=== PATIENT | male | born 1960 | race Hispanic/Latino ===

== ENCOUNTER 2020-04-03 23:13 | Observation (INO) | payer MEDICARE ==
[2020-04-04 00:32] LABS: Basophils % (Auto) 0.7 % (0.0-1.8); Eosinophils # (Auto) 0.1 K/mm3 (0.0-0.4); Eosinophils % (Auto) 1.5 % (0.0-4.3); Hematocrit 36.5 % (35.5-45.6); Hemoglobin 12.7 gm/dl (11.8-15.2); Lymphocytes # (Auto) 0.8 K/mm3 (1.2-5.4); Lymphocytes % (Auto) 15.1 % (13.4-35.0); Mean Corpuscular HGB Conc 35 % (32-34); Mean Corpuscular Volume 94 fl (84-94); Monocytes # (Auto) 0.8 K/mm3 (0.0-0.8); Monocytes % (Auto) 15.7 % (0.0-7.3); Platelet Count 193 K/mm3 (140-440); Red Blood Count 3.88 M/mm3 (3.65-5.03); Red Cell Distribution Width 13.9 % (13.2-15.2)
[2020-04-04 00:34] LABS: BUN/Creatinine Ratio 21; Blood Urea Nitrogen 17 mg/dL (9-20); Calcium 8.9 mg/dL (8.4-10.2); Hemolysis Index 0
--- NOTE | 2020-04-04 02:22 | Emergency Department Report ---
ED General Adult HPI - General Chief complaint: Wound/Laceration Stated complaint: LEG DRAINAGE PUI?: No Time Seen by Provider: 04/04/20 02:18 Source: patient, family Mode of arrival: Stretcher Limitations: No Limitations - History of Present Illness Initial comments: Patient is a 59-year-old male that presents emergency room with complaints of lower extremity ulcers and discoloration and discharge. Patient states that he had venous stasis ulcer in his legs for 1 year and they have been changing colors over the last 6 months. Patient states today that the wound bed on his left lower extremity turned black and began to have a purulent discharge. Patient states that the new symptoms started this morning. Patient denies fever and chills. Patient states the area is warm to touch. Patient states he has not seen a academic guidance specialist for a long time. Patient states he is been watching his wounds himself. 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 fib. Patient states he stopped taking his anticoagulation therapy 1 year ago. Patient states he has a filter. Patient denies recent travel. Patient denies recent international travel. Patient denies exposure to the novel coronavirus. Patient denies sick contacts. Patient denies fever and chills. Patient denies cough. Patient denies diarrhea. Patient denies coming in contact with anybody with symptoms of the novel coronavirus. -: Sudden Severity scale (0 -10): 3 Consistency: constant Improves with: rest Worsens with: movement Associated Symptoms: denies other symptoms. denies: confusion, chest pain, cough, diaphoresis, fever/chills, headaches, loss of appetite, malaise, nausea/vomiting, rash, seizure, shortness of breath, syncope, weakness Treatments Prior to Arrival: none - Related Data Allergies Allergy/AdvReac Type Severity Reaction Status Date / Time No Known Allergies Allergy Unverified 04/03/20 23:47 ED Review of Systems ROS: Stated complaint: LEG DRAINAGE Other details as noted in HPI Constitutional: denies: chills, fever Eyes: denies: eye pain, eye discharge, vision change ENT: denies: ear pain, throat pain Respiratory: denies: cough, shortness of breath, wheezing Cardiovascular: denies: chest pain, palpitations Endocrine: no symptoms reported Gastrointestinal: denies: abdominal pain, nausea, diarrhea Genitourinary: denies: urgency, dysuria Musculoskeletal: denies: back pain, joint swelling, arthralgia Skin: as per HPI, lesions, change in color. denies: rash Neurological: denies: headache, weakness, paresthesias Psychiatric: denies: anxiety, depression Hematological/Lymphatic: denies: easy bleeding, easy bruising ED Past Medical Hx - Past Medical History Previous Medical History?: Yes Additional medical history: A-fib. PE. DVT - Surgical History Past Surgical History?: Yes Additional Surgical History: Filter Lower right abdomen - Family History Family history: no significant - Social History Smoking Status: Never Smoker Substance Use Type: None ED Physical Exam - General Limitations: No Limitations General appearance: alert, in no apparent distress - Head Head exam: Present: atraumatic, normocephalic - Eye Eye exam: Present: normal appearance - ENT ENT exam: Present: mucous membranes moist - Neck Neck exam: Present: normal inspection - Respiratory Respiratory exam: Present: normal lung sounds bilaterally. Absent: respiratory distress, wheezes, rales - Cardiovascular Cardiovascular Exam: Present: regular rate, normal rhythm. Absent: systolic murmur, diastolic murmur, rubs, gallop - GI/Abdominal GI/Abdominal exam: Present: soft, normal bowel sounds - Rectal Rectal exam: Present: deferred - Extremities Exam Extremities exam: Present: tenderness, pedal edema, calf tenderness - Back Exam Back exam: Present: normal inspection - Neurological Exam Neurological exam: Present: alert, oriented X3 - Psychiatric Psychiatric exam: Present: normal affect, normal mood - Skin Skin exam: Present: warm, normal color, other (Bilateral lower extremity ulcers. Left leg worse than right. Lower extremity edema noted. Purulent discharge from the left lower extremity. A black eschar is noted on the left lower extremity.). Absent: rash ED Course Vital Signs 04/03/20 04/04/20 23:38 03:14 Temperature 97.9 F Pulse Rate 96 H Respiratory 18 18 Rate Blood Pressure 130/82 O2 Sat by Pulse 96 Oximetry - Reevaluation(s) Reevaluation #1: Patient complaining severe pain. Patient was given Dilaudid. 04/04/20 03:03 Reevaluation #2: Patient complaining anxiety. Patient will be given 2 mg of Ativan. 04/04/20 03:34 Reevaluation #3: I discussed all results with patient. I discussed plan of care with patient. Patient agrees with plan of care and admission. Patient to be admitted to the hospitalist service. 04/04/20 04:24 - Consultations Consultation #1: Hospitalist consulted for admission. Hospitalist to admit patient. Bridge orders placed. 04/04/20 04:25 ED Medical Decision Making - Lab Data Result diagrams: 04/04/20 00:02 04/04/20 00:02 - Radiology Data Radiology results: report reviewed DUPLEX DOPPLER LOWER EXTREMITY VEINS, BILATERAL INDICATION / CLINICAL INFORMATION: dionne lower pain and swelling. TECHNIQUE: Duplex doppler imaging was performed through the veins of both lower extremities using venous compression and other maneuvers. COMPARISON: None available. FINDINGS: RIGHT COMMON FEMORAL VEIN: Negative. RIGHT FEMORAL VEIN: Negative. RIGHT POPLITEAL VEIN: Negative. RIGHT CALF VEINS: Negative. LEFT COMMON FEMORAL VEIN: Negative. LEFT FEMORAL VEIN: Negative. LEFT POPLITEAL VEIN: Negative. LEFT CALF VEINS: Negative. ADDITIONAL FINDINGS: None. IMPRESSION: 1. No sonographic evidence for DVT in either lower extremity. - Medical Decision Making Patient is a 59-year-old male who presents emergency room with complaints of worsening stasis ulcer. Patient is a recently purulent discharge and I been. Patient was to be on anticoagulants for PEs and DVTs however patient been off for a year and patient complains of lower extremity swelling and pain. Patient given Dilaudid for pain. Patient given a Ativan for anxiety. Patient had an ultrasound of the lower extremities to rule out DVT. Patient given antibiotics early in the ER stay. Patient admitted to the hospital service for further evaluation and treatment. - Differential Diagnosis DVT, infected stasis ulcer, cellulitis, Critical Care Time: Yes Critical care time in (mins) excluding proc time.: 35 Critical care attestation.: If time is entered above; I have spent that time in minutes in the direct care of this critically ill patient, excluding procedure time. Critical Care Time: 35 minutes ED Disposition Clinical Impression: Swelling of lower extremity Lower extremity pain Qualifiers: Laterality: bilateral Qualified Code(s): M79.604 - Pain in right leg; M79.605 - Pain in left leg Venous stasis ulcer Qualifiers: Venous stasis ulcer site: other part of lower leg Varicose vein presence: unspecified whether present Laterality: unspecified laterality Non-pressure ulcer stage: with fat layer exposed Qualified Code(s): I83.008 - Varicose veins of unspecified lower extremity with ulcer other part of lower leg; L97.802 - Non-pressure chronic ulcer of other part of unspecified lower leg with fat layer exposed Infected stasis ulcer Qualifiers: Laterality: right Qualified Code(s): I83.219 - Varicose veins of right lower extremity with both ulcer of unspecified site and inflammation; L97.919 - Non- pressure chronic ulcer of unspecified part of right lower leg with unspecified severity Disposition: -09 OP ADMIT IP TO THIS HOSP Is pt being admited?: Yes Does the pt Need Aspirin: No Condition: Critical Time of Disposition: 04:21
[2020-04-04] MEDS ORDERED: VANCOMYCIN/NS 1 GM/250 ML 1 GM/250 ML BAG IV ONE (02:24)
[2020-04-04] MEDS ORDERED: PIPERACIL/TAZOBACTA 4.5/NS 100 4.5 GM/100 ML VIAL IV ONE (02:24)
[2020-04-04] MEDS ORDERED: VANCOMYCIN 2,000 MG in SODIUM CHLORIDE 0.9% 500 ML 500 ML IV ONE (03:00)
[2020-04-04] MEDS ORDERED: HYDROmorphone 1 MG/1 ML INJ ONE (03:05)
[2020-04-04] MEDS ORDERED: HYDROmorphone 1 MG/1 ML INJ IV ONE ×2 (03:08→03:14)
[2020-04-04] MEDS ORDERED: LORazepam 2 MG/ML VIAL IV ONE (03:46)
--- NOTE | 2020-04-04 03:54 | Vascular Lab Report ---
DUPLEX DOPPLER LOWER EXTREMITY VEINS, BILATERAL INDICATION / CLINICAL INFORMATION: dionne lower pain and swelling. TECHNIQUE: Duplex doppler imaging was performed through the veins of both lower extremities using venous kell rahul and other maneuvers. COMPARISON: None available. FINDINGS: RIGHT COMMON FEMORAL VEIN: Negative. RIGHT FEMORAL VEIN: Negative. RIGHT POPLITEAL VEIN: Negative. RIGHT CALF VEINS: Negative. LEFT COMMON FEMORAL VEIN: Negative. LEFT FEMORAL VEIN: Negative. LEFT POPLITEAL VEIN: Negative. LEFT CALF VEINS: Negative. ADDITIONAL FINDINGS: None. IMPRESSION: 1. No sonographic evidence for DVT in either lower extremity. Signer Name: Ghazala Noyola MD Signed: 04/04/2020 3:49 AM Workstation Name: [id number]
--- NOTE | 2020-04-04 08:44 | History and Physical Report ---
History of Present Illness Date of examination: 04/04/20 Date of admission: 04/04/20 04:25 Chief complaint: foot drainage and ulcer History of present illness: Patient is a 59-year-old male with h/o atrial fib, PE/DVT s/p ivc filter not on AC for one year, bipolar disorder/schizophrenia presented to the emergency room with complaints of lower extremity ulcers and discoloration and discharge. Patient states that he had venous stasis ulcer in his legs for 1 year and they have been changing colors over the last 6 months. Patient states that the wound bed on his left lower extremity recently turned black and today began to have a purulent discharge started this morning. Patient denies fever and chills. Patient states the area is warm to touch. Patient states he has not seen a transfer specialist for a long time. In the Er his blood workup is all normal. he being being admitted for surgical evaluation for possible debridement. Review of System: Constitutional: no fever, no chills, no weight loss Ears, eyes, nose, mouth and throat: no nasal congestion, no nasal discharge, no sinus pressure, no vision change, no red eye. Neck: No neck pain or rigidity. Cardiovascular: No chest pain, no orthopnea, no palpitations, no leg swelling Respiratory: No shortness of breath, no cough, no congestion, no wheezing Gastrointestinal: no abdominal pain, no nausea, no vomiting Genitourinary : no dysuria, no hematuria Musculoskeletal: no joint swelling or muscle ache Integumentary: no rash, no pruritis. + Bilateral lower extremity skin discoloration with yellowish discharge from the leg with chronic ulcer. Neurological: no parathesias, no numbness, no tingling Endocrine: no cold or heat intolerance, no polyuria or polydipsia Hematologic/Lymphatic: no easy bruising, no easy bleeding, no gland swelling Allergic/Immunologic: no urticaria, no angioedema. Past History Past Medical History: atrial fib (paroxysmal not on AC), hypertension, pulmonary embolism (h/o), other (Bipolar disorder) Past Surgical History: Other (s/p IVC filter) Social history: Lives alone. denies: smoking, alcohol abuse, IV drug use Family history: CAD, diabetes, stroke Medications and Allergies Allergies Allergy/AdvReac Type Severity Reaction Status Date / Time No Known Allergies Allergy Unverified 04/03/20 23:47 Home Medications Medication Instructions Recorded Confirmed Last Taken Type No Known Home Medications [No 04/04/20 04/04/20 Unknown History Reported Home Medications] Exam - Physical Exam Narrative exam: GENERAL: well-developed and well-nourished white male lying on bed appeared to be in no discomfort. HEENT: Normocephalic. Atraumatic. No conjunctival congestion or icterus. Patient has moist mucous membranes. NECK: Supple. Trachea midline. CHEST/LUNGS: Clear to auscultated bilaterally, breathing nonlabored. No wheezes crackles or rhonchi. HEART/CARDIOVASCULAR: Regular in rate and rhythm. S1 and S2 positive. ABDOMEN: Abdomen is soft, nontender. Patient has normal bowel sounds. SKIN: Warm and dry. Bilateral lower extremity skin discoloration with chronic ulcer. NEURO: No focal motor deficit. Follows command. MUSCULOSKELETAL: No joint effusion or tenderness. EXTRIMITY: no cyanosis or clubbing. Moderate amount of yellow drainage on both LE, Wound is necrotic on left leg, Skin is sloughing. PSYCH: Cooperative with flight of thoughts. Patient is unable to focus on 1 topics. Does not have any suicidal or homicidal ideas or thoughts. - Constitutional Vitals: Temp Pulse Resp BP Pulse Ox 97.9 F 84 16 117/64 91 04/03/20 23:38 04/04/20 05:01 04/04/20 05:01 04/04/20 05:01 04/04/20 05:01 Results - Labs CBC & Chem 7: 04/04/20 00:02 04/05/20 03:38 Labs: Abnormal lab results 04/04/20 04/04/20 Range/Units 00:02 00:02 MCH 33 H (28-32) pg MCHC 35 H (32-34) % [place] % (Auto) 15.7 H (0.0-7.3) % Lymph # (Auto) 0.8 L (1.2-5.4) K/mm3 Glucose 154 H (75-100) mg/dL Assessment and Plan B/L LE infected ulcer - start abx, order wound cx, blood cx - consult wound care and Dr Harding for possible debridement Atrial fib (paroxysmal not on AC) - get 2d echo, follow clinically hypertension, monitor BP h/o PE and DVT - s/p IVC filter, not on AC - will order doppler study Bipolar disorder, will consult psych dvt px, lovenox
[2020-04-04] MEDS ORDERED: ALUM-MAG HYDROXIDE-SIMETHICONE 200-200-20MG/5ML ORAL LIQD 30 ML PO PRN (08:45)
[2020-04-04] MEDS ORDERED: ONDANSETRON 4 MG/2 ML INJ IV PRN (08:45)
[2020-04-04] MEDS ORDERED: ACETAMINOPHEN 325 MG TAB PO PRN (08:45)
[2020-04-04] MEDS ORDERED: cefTRIAXone/NS 1 GM/50 ML 1 GM/50 ML BAG IV SCH (10:00)
[2020-04-04] MEDS ORDERED: VANCOMYCIN/NS 1 GM/250 ML 1 GM/250 ML BAG IV SCH (10:00)
[2020-04-04] MEDS ORDERED: VANCOMYCIN PHARMACY TO DOSE IV SCH (10:00)
[2020-04-04] MEDS: FAMOTIDINE 10 MG TAB PO SCH ×2 (12:47→21:54)
[2020-04-04] MEDS: cefTRIAXone/NS 2 GM/100 ML 2 GM/100 ML BAG IV SCH (12:47)
[2020-04-04] MEDS: oxyCODONE /ACETAMINOPHEN 5-325MG TAB PO PRN (12:48)
[2020-04-04] MEDS: SODIUM HYPOCHLORITE, DAKIN'S 1/2 STRENGTH (0.25%) 473 ML TOPICAL SOLN TP SCH ×2 (17:39→21:55)
[2020-04-04] MEDS: VANCOMYCIN 1,750 MG in SODIUM CHLORIDE 0.9% 500 ML 500 ML IV SCH (17:40)
[2020-04-04] MEDS ORDERED: LIDOCAINE (4%) 40 MG/ML TOPICAL SOLN 50 ML BOTTLE TP ONE (17:47)
--- NOTE | 2020-04-04 17:51 | Consultation ---
History of Present Illness Consult date: 04/04/20 - History of present illness History of present illness: 59 yo male with long standing BLE venous stasis ulcerations. He does not smoke and is not a diabetic. Medications and Allergies Allergies Allergy/AdvReac Type Severity Reaction Status Date / Time No Known Allergies Allergy Unverified 04/03/20 23:47 Home Medications Medication Instructions Recorded Confirmed Last Taken Type No Known Home Medications [No 04/04/20 04/04/20 Unknown History Reported Home Medications] Active Meds: Active Medications Acetaminophen (Acetaminophen 325 Mg Tab) 650 mg PO Q4H PRN PRN Reason: Pain MILD(1-3)/Fever >100.5/HENRY Al Hydrox/Mg Hydrox/Simethicone (Alum-Mag Hydroxide-Simethicone [phone]/5ml Oral Liqd 30 Ml) 30 ml PO Q4H PRN PRN Reason: Indigestion Famotidine (Famotidine 10 Mg Tab) 10 mg PO BID ON LICENSE OF [facility] Last Admin: 04/04/20 12:47 Dose: 10 mg Documented by: Ceftriaxone Sodium (Rocephin/Ns 2 Gm/100 Ml) 2 gm in 100 mls @ 200 mls/hr IV Q24HR ON LICENSE OF [facility] Last Admin: 04/04/20 12:47 Dose: 200 mls/hr Documented by: Vancomycin HCl 1,750 mg/ (Sodium Chloride) 535 mls @ 333.333 mls/hr IV Q12H ON LICENSE OF [facility] Last Admin: 04/04/20 17:40 Dose: 333.333 mls/hr Documented by: Ondansetron HCl (Ondansetron 4 Mg/2 Ml Inj) 4 mg IV Q8H PRN PRN Reason: N/V unrelieved by Reglan Oxycodone/Acetaminophen (Oxycodone /Acetaminophen 5-325mg Tab) 1 tab PO Q6H PRN PRN Reason: Pain, Moderate (4-6) Last Admin: 04/04/20 12:48 Dose: 1 tab Documented by: Sodium Hypochlorite (Sodium Hypochlorite, Dakin's 1/2 Strength (0.25%) 473 Ml Topical Soln) 1 applic TP BID ON LICENSE OF [facility] Last Admin: 04/04/20 17:39 Dose: Not Given Documented by: Review of Systems All systems: negative (none) Exam Vital Signs Temp Pulse Resp BP Pulse Ox 97.9 F 96 H 18 130/82 96 04/03/20 23:38 04/03/20 23:38 04/03/20 23:38 04/03/20 23:38 04/03/20 23:38 - General physical appearance Positive: well developed, well nourished, no distress - Eyes Positive: PERRL, normal occular movement - ENT Positive: normal pinna, normal nares, normal mucosa, no hearing loss, no congestion - Neck Positive: no masses, no bruits, trachea midline, no venous distension - Respiratory Positive: normal expansion, normal respiratory effort, clear to auscultation - Cardiovascular Rhythm: regular Heart Sounds: Present: S1 & S2. Absent: rub, click - Extremities Extremities: no ischemia, pulses symmetrical, No edema - Breasts Breasts: normal, no mass, no skin changes - Abdomen Abdomen: Present: soft, bowel sounds normal. Absent: tender, distended Hernia: none - Genitourinary Male Genitourinary: normal Female Genitourinary: normal - Integumentary no growths, other (Please see the photographs and measurements of the Wound Care nurse.) - Neurologic Neurologic: alert and oriented to time, place and person, motor strength and se nsation are grossly intact - Musculoskeletal normal gait, normal posture - Psychiatric Psychiatric: appropriate mood/affect, intact judgment & insight Results - Labs 04/04/20 00:02 04/04/20 00:02 Abnormal lab results 04/04/20 04/04/20 Range/Units 00:02 00:02 MCH 33 H (28-32) pg MCHC 35 H (32-34) % [place] % (Auto) 15.7 H (0.0-7.3) % Lymph # (Auto) 0.8 L (1.2-5.4) K/mm3 Glucose 154 H (75-100) mg/dL Diabetes panel 04/04/20 Range/Units 00:02 Sodium 139 (137-145) mmol/L Potassium 4.2 (3.6-5.0) mmol/L Chloride 104.3 (98-107) mmol/L Carbon Dioxide 24 (22-30) mmol/L BUN 17 (9-20) mg/dL Creatinine 0.8 (0.8-1.3) mg/dL Glucose 154 H (75-100) mg/dL Calcium 8.9 (8.4-10.2) mg/dL Calcium panel 04/04/20 Range/Units 00:02 Calcium 8.9 (8.4-10.2) mg/dL Pituitary panel 04/04/20 Range/Units 00:02 Sodium 139 (137-145) mmol/L Potassium 4.2 (3.6-5.0) mmol/L Chloride 104.3 (98-107) mmol/L Carbon Dioxide 24 (22-30) mmol/L BUN 17 (9-20) mg/dL Creatinine 0.8 (0.8-1.3) mg/dL Glucose 154 H (75-100) mg/dL Calcium 8.9 (8.4-10.2) mg/dL Adrenal panel 04/04/20 Range/Units 00:02 Sodium 139 (137-145) mmol/L Potassium 4.2 (3.6-5.0) mmol/L Chloride 104.3 (98-107) mmol/L Carbon Dioxide 24 (22-30) mmol/L BUN 17 (9-20) mg/dL Creatinine 0.8 (0.8-1.3) mg/dL Glucose 154 H (75-100) mg/dL Calcium 8.9 (8.4-10.2) mg/dL Assessment and Plan - Patient Problems (1) Venous stasis ulcer Current Visit: Yes Status: Acute Qualifiers: Venous stasis ulcer site: other part of lower leg Varicose vein presence: unspecified whether present Laterality: unspecified laterality Non-pressure ulcer stage: with fat layer exposed Qualified Code(s): I83.008 - Varicose veins of unspecified lower extremity with ulcer other part of lower leg; L97.802 - Non-pressure chronic ulcer of other part of unspecified lower leg with fat layer exposed Plan to address problem: 1) Elevation of BLE at all times 2) Agree with Wound care nurse consultation 3) I will debride his BLE ulcerations at the bedside tomorrow.
[2020-04-05] MEDS: oxyCODONE /ACETAMINOPHEN 5-325MG TAB PO PRN ×2 (00:34→06:39)
[2020-04-05] MEDS ORDERED: MORPHINE 2 MG/1 ML INJ IV ONE (04:50)
[2020-04-05] MEDS: VANCOMYCIN 1,750 MG in SODIUM CHLORIDE 0.9% 500 ML 500 ML IV SCH (05:27)
[2020-04-05 06:08] LABS: Blood Urea Nitrogen 12 mg/dL (9-20); Calcium 8.9 mg/dL (8.4-10.2); Hemolysis Index 2
[2020-04-05 06:14] LABS: BUN/Creatinine Ratio 17
[2020-04-05] MEDS: SODIUM HYPOCHLORITE, DAKIN'S 1/2 STRENGTH (0.25%) 473 ML TOPICAL SOLN TP SCH (11:00)
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
--- NOTE | 2020-04-05 12:14 | Procedure Note ---
Date of procedure: 04/05/20 Pre-op diagnosis: Left medial leg ulcer Post-op diagnosis: same Procedure: Debridement of left medial leg ulcer Description of procedure: Post-debridement measurements: 11.6 X 7 X 0.6 cm Anesthesia: other (Topical lidocaine, 4%) Surgeon: JAIR MANJARREZ Estimated blood loss: minimal Pathology: none Specimen disposition: discarded Condition: stable Disposition: no change
[2020-04-05] MEDS: FAMOTIDINE 10 MG TAB PO SCH (13:17)
[2020-04-05] MEDS: cefTRIAXone/NS 2 GM/100 ML 2 GM/100 ML BAG IV SCH (13:18)
[2020-04-05 13:33] VITALS: BP 127/83
--- NOTE | 2020-04-05 14:30 | Discharge Summary ---
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 Patient states he has not seen a [facility] specialist for a long time. In the Er his blood workup is all normal. he was admitted for surgical evaluation for possible debridement, consulted Dr. Harding, started on empiric IV antibiotics, obtained wound culture. Patient had bedside debridement, wound care was consulted for wound care recommendation. Patient was recommended to follow-up with the wound care clinic. Patient was also evaluated by psychiatry and recommended outpatient follow-up. Patient was discharged home in stable condition with outpatient follow-up. Discharge diagnosis: B/L LE infected ulcer -Status post debridement at bedside by Dr. Harding -Continue antibiotics, follow-up wound care clinic Atrial fib (paroxysmal not on AC), -follow with cardiology outpatient -Discharge home with daily aspirin -Ordered 2D echo but patient did not want to wait for the result hypertension, monitored BP, stable h/o PE and DVT - s/p IVC filter, not on AC -Negative for DVT on Doppler study Bipolar disorder, consulted psych, outpatient follow-up dvt px, lovenox Disposition: [id number] HOME UNDER [facility] Time spent for discharge: 34 minutes Core Measure Documentation - Palliative Care Palliative Care/ Comfort Measures: Not Applicable - Core Measures Any of the following diagnoses?: none Exam - Physical Exam Narrative exam: GENERAL: well-developed and well-nourished white male lying on bed appeared to be in no discomfort. HEENT: Normocephalic. Atraumatic. No conjunctival congestion or icterus. Patient has moist mucous membranes. NECK: Supple. Trachea midline. CHEST/LUNGS: Clear to auscultated bilaterally, breathing nonlabored. No wheezes crackles or rhonchi. HEART/CARDIOVASCULAR: Regular in rate and rhythm. S1 and S2 positive. ABDOMEN: Abdomen is soft, nontender. Patient has normal bowel sounds. SKIN: Warm and dry. Bilateral lower extremity skin discoloration with chronic ulcer. NEURO: No focal motor deficit. Follows command. MUSCULOSKELETAL: No joint effusion or tenderness. EXTRIMITY: no cyanosis or clubbing. Bilateral lower extremity with wound dressing PSYCH: Cooperative with flight of thoughts. Patient is unable to focus on 1 topics. Does not have any suicidal or homicidal ideas or thoughts. - Constitutional Vitals: Temp Pulse Resp BP Pulse Ox 98.2 F 83 22 127/83 97 04/05/20 11:32 04/05/20 11:32 04/05/20 11:32 04/05/20 11:32 04/05/20 11:32 Plan Activity: advance as tolerated Weight Bearing Status: Weight Bear as Tolerated Diet: low fat, low salt Wound: per your surgeon's advice, per wound nurse instructions Additional Instructions: f/u 2d echo result Follow up with: PRIMARY CAREMD [Primary Care Provider] - 7 Days JAIR HARDING MD [Staff Physician] - 7 Days VIDAL KAISER MD [Staff Physician] - 7 Days Prescriptions: Mirtazapine [Remeron 15mg TAB] 15 mg PO QHS #14 tablet OLANzapine [ZyPREXA] 10 mg PO QHS #14 tablet Sulfamethoxazole/Trimethoprim [Bactrim DS TAB] 1 each PO BID #14 tablet Aspirin EC [Halfprin EC] 81 mg PO QDAY #30 tablet.
[2020-04-05] MEDS ORDERED: MELATONIN 5 MG TAB PO SCH (22:00)
[2020-04-05] MEDS ORDERED: MIRTAZAPINE 15 MG TAB PO SCH (22:00)
== END 2020-04-05 17:09 | disposition home health service (06) ==
LOC: ED 23:13 → 3A 04-04 04:25
PROVIDERS: ADMIT Internal Medicine Geriatric Medicine; ATTEND Internal Medicine
DX: I83.219 Varicose veins of right lower extremity with both ulcer of unspecified site and inflammation (principal); I83.008 Varicose veins of unspecified lower extremity with ulcer other part of lower leg; L97.802 Non-pressure chronic ulcer of other part of unspecified lower leg with fat layer exposed; L97.919 Non-pressure chronic ulcer of unspecified part of right lower leg with unspecified severity; I48.0 Paroxysmal atrial fibrillation; I10 Essential (primary) hypertension; F31.9 Bipolar disorder, unspecified; Z86.711 Personal history of pulmonary embolism; Z86.718 Personal history of other venous thrombosis and embolism; Z98.890 Other specified postprocedural states
CPT/HCPCS: 11010; 36415; 80048; 85025; 87076; 87116; 87186; 93005; 93306; 93970; 96365; 96366; 96367; 96375; 99291; A6260; G0378; J0696; J1170; J2060; J2270; J2543; J3370; J7040

== ENCOUNTER 2021-01-26 17:48 | Emergency (ER) | payer MEDICARE ==
--- NOTE | 2021-01-26 18:25 | Emergency Department Report ---
HPI - HPI HPI: Room 12 The patient is a 60-year-old male present with a chief complaint of suicidal ideation. Patient states he has felt suicidal for several weeks intermittently. Patient states he has felt paranoid and has not been able to sleep as well. The patient states approximately 1 month ago he took a handful of [id number]-yzi-[id number] sleep aids in an attempt to kill himself but he does not remember the name of the medication. The patient states he has also thought of jumping off a bridge <LARRY HUDDLESTON - Last Filed: 01/26/21 18:20> <NICOLE JIMÉNEZ - Last Filed: 01/27/21 15:59> - General Chief Complaint: Psych Time Seen by Provider: 01/26/21 18:04 ED Past Medical Hx - Past Medical History Previous Medical History?: Yes Hx Deep Vein Thrombosis: Yes Hx Pulmonary Embolism: Yes Additional medical history: A-fib. PE. DVT - Surgical History Past Surgical History?: Yes Additional Surgical History: Filter Lower right abdomen - Family History Family history: no significant - Social History Smoking Status: Current Some Day Smoker Substance Use Type: None (Denies illicit drug use), Alcohol (Occasional) <LARRY HUDDLESTON - Last Filed: 01/26/21 18:20> <NICOLE JIMÉNEZ - Last Filed: 01/27/21 15:59> - Medications Home Medications: Home Medications Medication Instructions Recorded Confirmed Last Taken Type Aspirin EC [Halfprin EC] 81 mg PO QDAY #30 tablet. 04/05/20 01/27/21 Unknown Rx Mirtazapine [Remeron 15mg TAB] 15 mg PO QHS #14 tablet 04/05/20 01/27/21 Unknown Rx OLANzapine [ZyPREXA] 10 mg PO QHS #14 tablet 04/05/20 01/27/21 Unknown Rx Apixaban [Eliquis] 5 mg PO BID 01/27/21 01/27/21 Unknown History ED Review of Systems ROS: Stated complaint: SUICIDE THOUGHTS Other details as noted in HPI Constitutional: no symptoms reported Eyes: denies: eye pain ENT: denies: throat pain Respiratory: no symptoms reported Cardiovascular: denies: chest pain Endocrine: no symptoms reported Gastrointestinal: denies: abdominal pain Genitourinary: denies: dysuria Musculoskeletal: denies: back pain Neurological: denies: headache Psychiatric: suicidal thoughts <LARRY HUDDLESTON - Last Filed: 01/26/21 18:20> ROS: Stated complaint: SUICIDE THOUGHTS Other details as noted in HPI <NICOLE JIMÉNEZ - Last Filed: 01/27/21 15:59> Physical Exam - Physical Exam Vital Signs: Vital Signs 01/26/21 18:05 Temperature 98 F Pulse Rate 86 Respiratory 16 Rate Blood Pressure 148/86 [Right] O2 Sat by Pulse 94 Oximetry Physical Exam: GENERAL: The patient is well-developed well-nourished male sitting on chair not appearing to be in acute distress. [] HEENT: Normocephalic. Atraumatic. Extraocular motions are intact. Patient has moist mucous membranes. NECK: Supple. Trachea midline CHEST/LUNGS: Clear to auscultation. There is no respiratory distress noted. HEART/CARDIOVASCULAR: Regular. There is no tachycardia. There is no gallop rub or murmur. ABDOMEN: Abdomen is soft, nontender. Patient has normal bowel sounds. There is no abdominal distention. SKIN: There is no rash. There is no edema. There is no diaphoresis. NEURO: The patient is awake, alert, and oriented. The patient is cooperative. The patient has no focal neurologic deficits. The patient has normal speech. GCS 15 MUSCULOSKELETAL: There is no evidence of acute injury. <LARRY HUDDLESTON - Last Filed: 01/26/21 18:20> - Physical Exam Vital Signs: Vital Signs 01/26/21 01/26/21 01/26/21 18:05 18:55 22:01 Temperature 98 F Pulse Rate 86 Respiratory 16 Rate Blood Pressure 148/86 [Right] O2 Sat by Pulse 94 100 98 Oximetry 01/27/21 01/27/21 09:57 10:07 Temperature 98.2 F Pulse Rate 67 Respiratory 18 Rate Blood Pressure 131/59 [Right] O2 Sat by Pulse 98 99 Oximetry <NICOLE JIMÉNEZ - Last Filed: 01/27/21 15:59> ED Course Vital Signs 01/26/21 18:05 Temperature 98 F Pulse Rate 86 Respiratory 16 Rate Blood Pressure 148/86 [Right] O2 Sat by Pulse 94 Oximetry <LARRY HUDDLESTON - Last Filed: 01/26/21 18:20> Vital Signs 01/26/21 01/26/21 01/26/21 18:05 18:55 22:01 Temperature 98 F Pulse Rate 86 Respiratory 16 Rate Blood Pressure 148/86 [Right] O2 Sat by Pulse 94 100 98 Oximetry 01/27/21 01/27/21 09:57 10:07 Temperature 98.2 F Pulse Rate 67 Respiratory 18 Rate Blood Pressure 131/59 [Right] O2 Sat by Pulse 98 99 Oximetry - Reevaluation(s) Reevaluation #1: 01/27/21 15:59 Pt accepted to [facility] <NICOLE JIMÉNEZ - Last Filed: 01/27/21 15:59> ED Medical Decision Making - Differential Diagnosis Suicidal ideation <LARRY HUDDLESTON - Last Filed: 01/26/21 18:20> - Lab Data Result diagrams: 01/26/21 18:23 01/26/21 18:23 <NICOLE JIMÉNEZ - Last Filed: 01/27/21 15:59> Critical care attestation.: If time is entered above; I have spent that time in minutes in the direct care of this critically ill patient, excluding procedure time. <LARRY HUDDLESTON - Last Filed: 01/26/21 18:20> Critical care attestation.: If time is entered above; I have spent that time in minutes in the direct care of this critically ill patient, excluding procedure time. <NICOLE JIMÉNEZ - Last Filed: 01/27/21 15:59> ED Disposition <LARRY HUDDLESTON - Last Filed: 01/26/21 18:20> Is pt being admited?: No Does the pt Need Aspirin: No Time of Disposition: 15:59 <NICOLE JIMÉNEZ - Last Filed: 01/27/21 15:59> Clinical Impression: Suicidal ideation, Bipolar disorder, current episode hypomanic Venous stasis ulcer Qualifiers: Venous stasis ulcer site: other part of lower leg Varicose vein presence: unspecified whether present Laterality: unspecified laterality Non-pressure ulcer stage: with fat layer exposed Qualified Code(s): I83.008 - Varicose veins of unspecified lower extremity with ulcer other part of lower leg Disposition: 01 HOME / SELF CARE / HOMELESS Condition: Stable
[2021-01-26 18:47] LABS: Basophils % (Auto) 0.7 % (0.0-1.8); Eosinophils % (Auto) 0.5 % (0.0-4.3); Hematocrit 44.5 % (35.5-45.6); Hemoglobin 14.9 gm/dl (11.8-15.2); Lymphocytes % (Auto) 16.8 % (13.4-35.0); Mean Corpuscular HGB Conc 34 % (32-34); Mean Corpuscular Volume 96 fl (84-94); Monocytes # (Auto) 0.6 K/mm3 (0.0-0.8); Monocytes % (Auto) 9.9 % (0.0-7.3); Platelet Count 161 K/mm3 (140-440); Red Blood Count 4.65 M/mm3 (3.65-5.03); Red Cell Distribution Width 14.4 % (13.2-15.2)
[2021-01-26 18:56] LABS: BUN/Creatinine Ratio 31; Blood Urea Nitrogen 25 mg/dL (9-20); Calcium 9.2 mg/dL (8.4-10.2); Hemolysis Index 10
[2021-01-26 20:54] LABS: Bilirubin,Urine NEG (Negative); Blood,Urine SM (Negative); Color,Urine Yellow (Yellow); Hyaline Casts,Urine 1 /LPF; Mucus,Urine 2+ /HPF
[2021-01-26 21:00] LABS: Amphetamine Screen,Urine Negative; Benzodiazepines Screen,Urine Negative; Cannabinoid Screen,Urine Negative; Cocaine Screen,Urine Negative; Methadone Screen,Urine Negative; Opiate Screen,Urine Negative
[2021-01-26] MEDS: MIRTAZAPINE 15 MG TAB PO SCH (22:22)
[2021-01-27] MEDS ORDERED: ASPIRIN EC 81 MG TAB PO SCH (10:00)
[2021-01-27] MEDS ORDERED: NON-FORMULARY EACH (Apixaban 5 MG Tablet) PO SCH (10:45)
--- NOTE | 2021-01-27 12:48 | Consultation ---
History of Present Illness - Reason for Consult Consult date: 01/27/21 Reason for consult: Suicidal ideation - History of Present Psychiatric Illness Per ED Note:The patient is a 60-year-old male present with a chief complaint of suicidal ideation. Patient states he has felt suicidal for several weeks intermittently. Patient states he has felt paranoid and has not been able to sleep as well. The patient states approximately 1 month ago he took a handful of ifbh-ula-dgecjxy sleep aids in an attempt to kill himself but he does not remember the name of the medication. The patient states he has also thought of jumping off a bridge. Ángel Baxter is a 60 year old male with history of depression.In my interview with the patient, he reports experiencing worsening depression and suicidal ideation with a plan to overdose on pills. The patient reports noncompliant with psychotropic medications stating he stopped taking meds about a month ago. He denies having hallucinations. PAST PSYCHIATRIC HISTORY Diagnoses: Depression Suicide attempts or Self-harm behavior: Yes Prior psychiatric hospitalizations: Yes Substance Abuse history: marijuana Previous psychiatric medications tried: Zyprexa, Remeron Outpatient treatment:unknown PAST MEDICAL HISTORY:None Family Psychiatric History: None reported or documented SOCIAL HISTORY Marital Status: single Living Arrangements: Lives alone Employment Status: [employer] Access to guns/weapons: none reported Education: 10th grade History of Abuse: none reported Legal History: Unknown REVIEW OF SYSTEMS Constitutional: Negative for weight loss ENT: Negative for stridor Respiratory: Negative for cough or hemoptysis All other systems reviewed and are negative MENTAL STATUS EXAMINATION General Appearance and Behavior: Age appropriate, fair hygiene, wearing appropri ate clothes, good eye contact, cooperative polite with questioning. Cooperation: Participating/engaged Psychomotor Behavior: unremarkable and within normal limits Mood: depressed Affect and affective range: congruent with mood Thought Process: Fluent/Logical Thought Content: Suicidal Speech: Normal volume, Regular rate and rhythm Intellectual Functioning: Average Suicidal Ideation: Yes Homicidal Ideation: Denies HI Hallucinations:Denies Impulse Control: Unimpaired Insight and Judgment: Normal insight and poor judgment Memory: Normal Attention: Normal, Orientation: Alert, oriented RECOMMENDATIONS Assessment and Plan - Psychiatric problem (1) Major depressive disorder, recurrent, severe-F33.2 Current Visit: Yes Status: Acute Continue 1013 Continue Zyprexa 10 mg po QHS Continue Remeron 15mg po QHS MEDICATIONS Patient medications restarted. Risks, benefits and alternatives of medications discussed with the patient, questions answered and consent obtained from patient. PSYCHOTHERAPY: Supportive psychotherapy provided MEDICAL: Per primary team DELIRIUM PRECAUTIONS: Please re-orient patient frequently, keep lights on during the day, and minimize benzodiazepines and opiates as these medications could worsen patient's confusion. 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 Please contact with any questions and/or concerns. Medications and Allergies Medications and Allergies Allergies Allergy/AdvReac Type Severity Reaction Status Date / Time Hornets Allergy Hives Uncoded 01/26/21 19:42 Home Medications Medication Instructions Recorded Confirmed Last Taken Type Aspirin EC [Halfprin EC] 81 mg PO QDAY #30 tablet. 04/05/20 01/27/21 Unknown Rx Mirtazapine [Remeron 15mg TAB] 15 mg PO QHS #14 tablet 04/05/20 01/27/21 Unknown Rx OLANzapine [ZyPREXA] 10 mg PO QHS #14 tablet 04/05/20 01/27/21 Unknown Rx Apixaban [Eliquis] 5 mg PO BID 01/27/21 01/27/21 Unknown History Active Meds: Active Medications Apixaban (Apixaban 5 Mg Tab) 5 mg PO BID [facility] Aspirin (Aspirin Ec 81 Mg Tab) 81 mg PO QDAY [facility] Last Admin: 01/27/21 10:02 Dose: 81 mg Documented by: Mirtazapine (Mirtazapine 15 Mg Tab) 15 mg PO QHS [facility] Last Admin: 01/26/21 22:22 Dose: 15 mg Documented by: Olanzapine (Olanzapine 5 Mg Tab) 10 mg PO QHS [facility] Last Admin: 01/26/21 22:22 Dose: 10 mg Documented by: Mental Status Exam - Vital signs Last Vital Signs Temp 98.2 F 01/27/21 09:57 Pulse 67 01/27/21 09:57 Resp 18 01/27/21 09:57 BP 131/59 01/27/21 09:57 Pulse Ox 99 01/27/21 10:07 Results Result Diagrams: 01/26/21 18:23 01/26/21 18:23 Abnormal lab results 01/26/21 01/26/21 01/26/21 Range/Units 18:23 18:23 18:23 MCV 96 H (84-94) fl Gates % (Auto) 9.9 H (0.0-7.3) % Lymph # (Auto) 1.0 L (1.2-5.4) K/mm3 Seg Neutrophils % 72.1 H (40.0-70.0) % Carbon Dioxide 19 L (22-30) mmol/L BUN 25 H (9-20) mg/dL Salicylates < 0.3 L (2.8-20.0) mg/dL Acetaminophen (10.0-30.0) ug/mL 01/26/21 Range/Units 18:23 MCV (84-94) fl Gates % (Auto) (0.0-7.3) % Lymph # (Auto) (1.2-5.4) K/mm3 Seg Neutrophils % (40.0-70.0) % Carbon Dioxide (22-30) mmol/L BUN (9-20) mg/dL Salicylates (2.8-20.0) mg/dL Acetaminophen 5.0 L (10.0-30.0) ug/mL All other labs normal.
--- NOTE | 2021-01-27 13:01 | Event Note ---
Date: 01/27/21 Patient is with no major issues overnight. Continues to feel suicidal and is suggested the patient remain as a 1013. Patient has a chronic area of swelling to his left lower extremity with a healed venous stasis ulcer. Patient requesting wrap for his leg. This was done by the nursing staff. Patient medically cleared Psychiatric Consult Note Patient Name: ÁNGEL HUGHES Date of : 1960 Patient Status: Emergency Emergency Provider: LARRY HUDDLESTON Date: 01/27/21 12:45 Initialization Date: 01/27/21 12:45 History of Present Illness - Reason for Consult Consult date: 01/27/21 - History of Present Psychiatric Illness Per ED Note:The patient is a 60-year-old male present with a chief complaint of suicidal ideation. Patient states he has felt suicidal for several weeks intermittently. Patient states he has felt paranoid and has not been able to sleep as well. The patient states approximately 1 month ago he took a handful of mrot-sme-gwqwrne sleep aids in an attempt to kill himself but he does not remember the name of the medication. The patient states he has also thought of jumping off a bridge. Ángel Hughes is a 60 year old male with history of depression.In my interview with the patient, he reports experiencing worsening depression and suicidal ideation with a plan to overdose on pills. The patient reports noncompliant with psychotropic medications stating he stopped taking meds about a month ago. He denies having hallucinations. PAST PSYCHIATRIC HISTORY Diagnoses: Depression Suicide attempts or Self-harm behavior: Yes Prior psychiatric hospitalizations: Yes Substance Abuse history: marijuana Previous psychiatric medications tried: Zyprexa, Remeron Outpatient treatment:unknown PAST MEDICAL HISTORY:None Family Psychiatric History: None reported or documented SOCIAL HISTORY Marital Status: single Living Arrangements: Lives alone Employment Status: [employer] Access to guns/weapons: none reported Education: 10th grade History of Abuse: none reported Legal History: Unknown REVIEW OF SYSTEMS Constitutional: Negative for weight loss ENT: Negative for stridor Respiratory: Negative for cough or hemoptysis All other systems reviewed and are negative MENTAL STATUS EXAMINATION General Appearance and Behavior: Age appropriate, fair hygiene, wearing appropriate clothes, good eye contact, cooperative polite with questioning. Cooperation: Participating/engaged Psychomotor Behavior: unremarkable and within normal limits Mood: depressed Affect and affective range: congruent with mood Thought Process: Fluent/Logical Thought Content: Suicidal Speech: Normal volume, Regular rate and rhythm Intellectual Functioning: Average Suicidal Ideation: Yes Homicidal Ideation: Denies HI Hallucinations:Denies Impulse Control: Unimpaired Insight and Judgment: Normal insight and poor judgment Memory: Normal Attention: Normal, Orientation: Alert, oriented RECOMMENDATIONS Assessment and Plan - Psychiatric problem (1) Major depressive disorder, recurrent, severe-F33.2 Current Visit: Yes Status: Acute Continue 1013 Continue Zyprexa 10 mg po QHS Continue Remeron 15mg po QHS MEDICATIONS Patient medications restarted. Risks, benefits and alternatives of medications discussed with the patient, questions answered and consent obtained from patient. PSYCHOTHERAPY: Supportive psychotherapy provided MEDICAL: Per primary team DELIRIUM PRECAUTIONS: Please re-orient patient frequently, keep lights on during the day, and minimize benzodiazepines and opiates as these medications could worsen patient's confusion. 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 Please contact with any questions and/or concerns.
[2021-01-27] MEDS: APIXABAN 5 MG TAB PO SCH ×2 (13:11→22:29)
[2021-01-27 21:42] VITALS: BP 127/88
[2021-01-27] MEDS: MIRTAZAPINE 15 MG TAB PO SCH (22:29)
== END 2021-01-28 01:34 | disposition home or self-care (01) ==
LOC: ED 17:48 → EEVIPCON 17:48 → ED 01-28 01:34
DX: R45.851 Suicidal ideations (principal); I83.008 Varicose veins of unspecified lower extremity with ulcer other part of lower leg; F31.9 Bipolar disorder, unspecified; Z20.822 Contact with and (suspected) exposure to COVID-19
CPT/HCPCS: 36415; 80048; 80307; 81001; 85025; 99284; U0003; 80320; G0480

== ENCOUNTER 2021-01-27 01:37 | Inpatient (IN) | payer MEDICARE ==
[2021-01-28] MEDS: MIRTAZAPINE 15 MG TAB PO SCH ×2 (05:03→21:48)
[2021-01-28 05:38] LABS: Eosinophils # (Auto) 0.1 K/mm3 (0.0-0.4); Eosinophils % (Auto) 2.9 % (0.0-4.3); Hematocrit 41.8 % (35.5-45.6); Hemoglobin 14.4 gm/dl (11.8-15.2); Lymphocytes # (Auto) 1.2 K/mm3 (1.2-5.4); Lymphocytes % (Auto) 30.7 % (13.4-35.0); Mean Corpuscular HGB Conc 34 % (32-34); Mean Corpuscular Volume 95 fl (84-94); Monocytes # (Auto) 0.5 K/mm3 (0.0-0.8); Monocytes % (Auto) 12.5 % (0.0-7.3); Platelet Count 154 K/mm3 (140-440); Red Cell Distribution Width 14.1 % (13.2-15.2)
[2021-01-28 06:02] LABS: Alanine Aminotransferase 13 units/L (7-56); Albumin 4.1 g/dL (3.9-5); Blood Urea Nitrogen 23 mg/dL (9-20); Calcium 9.1 mg/dL (8.4-10.2); Chol/HDL Ratio 3.71 %; HDL Cholesterol 49 mg/dL (40-59); Hemolysis Index 9; LDL Cholesterol,Direct 117 mg/dL (50-130)
[2021-01-28 06:36] LABS: BUN/Creatinine Ratio 33
[2021-01-28 06:45] LABS: Hepatitis C Virus Antibody Non-Reactive (NonReactive)
[2021-01-28 06:58] LABS: Hepatitis B Surface Antigen Nonreactive (Negative)
[2021-01-28] MEDS: ASPIRIN EC 81 MG TAB PO SCH (10:42)
[2021-01-28] MEDS: APIXABAN 5 MG TAB PO SCH ×2 (10:42→21:45)
--- NOTE | 2021-01-28 12:27 | History and Physical Report ---
GP History & Physical - History of Present Illness Date of admission: 01/27/21 Date of Examination: 01/28/21 Reason for Admission: Danger to self Chief Complaint: sucidal ideation History of Present Illness: The patient was seen in the ED: Ángel Hughes is a 60 year old male with history of depression.In my interview with the patient, he reports experiencing worsening depression and suicidal ideation with a plan to overdose on pills. The patient reports noncompliant with psychotropic medications stating he stopped taking meds about a month ago. He denies having hallucinations. The patient was seen this morning, he continue to endorse sucidal ideation with a plan to over dose on pills. He denies having hallucinations. PAST PSYCHIATRIC HISTORY Diagnoses: Depression Suicide attempts or Self-harm behavior: Yes Prior psychiatric hospitalizations: Yes Substance Abuse history: marijuana Previous psychiatric medications tried: Zyprexa, Remeron Outpatient treatment:unknown PAST MEDICAL HISTORY:None Family Psychiatric History: None reported or documented SOCIAL HISTORY Marital Status: single Living Arrangements: Lives alone Employment Status: [employer] Access to guns/weapons: none reported Education: 10th grade History of Abuse: none reported Legal History: Unknown REVIEW OF SYSTEMS Constitutional: Negative for weight loss ENT: Negative for stridor Respiratory: Negative for cough or hemoptysis All other systems reviewed and are negative MENTAL STATUS EXAMINATION General Appearance and Behavior: Age appropriate, fair hygiene, wearing appropriate clothes, good eye contact, cooperative polite with questioning. Cooperation: Participating/engaged Psychomotor Behavior: unremarkable and within normal limits Mood: Depressed Affect and affective range: congruent with mood Thought Process: Fluent/Logical Thought Content: Suicidal Speech: Normal volume, Regular rate and rhythm Intellectual Functioning: Average Suicidal Ideation: Yes Homicidal Ideation: Denies HI Hallucinations:Denies Impulse Control: Unimpaired Insight and Judgment: Normal insight and poor judgment Memory: Normal Attention: Normal, Orientation: Alert, oriented RECOMMENDATIONS Assessment and Plan - Psychiatric problem (1) Major depressive disorder, recurrent, severe-F33.2 Current Visit: Yes Status: Acute Treatment Plan Patient admitted for inpatient psychiatric evaluation, medication adjustment and close monitoring The patient's behavior, mood, sleep and appetite will be closely monitored. Patient enrolled in individual and group therapeutic sessions and encouraged to attend. Patient provided with a safe and structured environment. Patient's physical health needs will be addressed by the Hospitalist. Hospitalist Consulted Labs including CBC, CMP, Lipid profile and Hemoglobin A1C levels ordered for baseline reference Social Assessment will be completed and the Wax Pattern Coater will work with patient and family to ensure a suitable and safe disposition Medication adjustment will be made as clinically indicated Continued Home medications Usual Wellness Roman Catholic/Preservation: - Start Trazodone 50 mg po QHS & 50 mg po QHS PRN between 10 PM & 2 AM for insomnia - Start Melatonin 5 mg po QHS to promote circadian rhythm The patient agreed on the treatment plan, understood the risk, benefit, alternative treatment, potential consequence of no treatment, and gave informed consent. Estimated days: 7 Post hospital care: primary care provider, psychiatric provider Case staffed with Dr. Collier Reaction to Hospitalization: Accepting Medications and Allergies Legal Status: Voluntary Reaction to Hospitalization: Accepting Medications and Allergies Allergies Allergy/AdvReac Type Severity Reaction Status Date / Time Hornets Allergy Hives Uncoded 01/26/21 19:42 Home Medications Medication Instructions Recorded Confirmed Last Taken Type Aspirin EC [Halfprin EC] 81 mg PO QDAY #30 tablet. 04/05/20 01/28/21 Unknown Rx Mirtazapine [Remeron 15mg TAB] 15 mg PO QHS #14 tablet 04/05/20 01/28/21 Unknown Rx OLANzapine [ZyPREXA] 10 mg PO QHS #14 tablet 04/05/20 01/28/21 Unknown Rx Apixaban [Eliquis] 5 mg PO BID 01/27/21 01/28/21 Unknown History Active Meds: Active Medications Apixaban (Apixaban 5 Mg Tab) 5 mg PO BID [facility] Last Admin: 01/28/21 10:42 Dose: 5 mg Documented by: Aspirin (Aspirin Ec 81 Mg Tab) 81 mg PO QDAY [facility] Last Admin: 01/28/21 10:42 Dose: 81 mg Documented by: Mirtazapine (Mirtazapine 15 Mg Tab) 15 mg PO QHS [facility] Last Admin: 01/28/21 05:03 Dose: Not Given Documented by: Olanzapine (Olanzapine 10 Mg Tab) 10 mg PO QDAY [facility] Last Admin: 01/28/21 10:42 Dose: 10 mg Documented by: Results - Results Labs/Vitals: Laboratory Last Values WBC 3.9 K/mm3 (4.5-11.0) L 01/28/21 05:12 RBC 4.40 M/mm3 (3.65-5.03) 01/28/21 05:12 Hgb 14.4 gm/dl (11.8-15.2) 01/28/21 05:12 Hct 41.8 % (35.5-45.6) 01/28/21 05:12 MCV 95 fl (84-94) H 01/28/21 05:12 MCH 33 pg (28-32) H 01/28/21 05:12 MCHC 34 % (32-34) 01/28/21 05:12 RDW 14.1 % (13.2-15.2) 01/28/21 05:12 Plt Count 154 K/mm3 (140-440) 01/28/21 05:12 Lymph % (Auto) 30.7 % (13.4-35.0) 01/28/21 05:12 [place] % (Auto) 12.5 % (0.0-7.3) H 01/28/21 05:12 Eos % (Auto) 2.9 % (0.0-4.3) 01/28/21 05:12 Baso % (Auto) 1.0 % (0.0-1.8) 01/28/21 05:12 Lymph # (Auto) 1.2 K/mm3 (1.2-5.4) 01/28/21 05:12 [place] # (Auto) 0.5 K/mm3 (0.0-0.8) 01/28/21 05:12 Eos # (Auto) 0.1 K/mm3 (0.0-0.4) 01/28/21 05:12 Baso # (Auto) 0.0 K/mm3 (0.0-0.1) 01/28/21 05:12 Seg Neutrophils % 52.9 % (40.0-70.0) 01/28/21 05:12 Seg Neutrophils # 2.1 K/mm3 (1.8-7.7) 01/28/21 05:12 Sodium 140 mmol/L (137-145) 01/28/21 05:12 Potassium 3.8 mmol/L (3.6-5.0) 01/28/21 05:12 Chloride 106.9 mmol/L (98-107) 01/28/21 05:12 Carbon Dioxide 21 mmol/L (22-30) L 01/28/21 05:12 Anion Gap 16 mmol/L 01/28/21 05:12 BUN 23 mg/dL (9-20) H 01/28/21 05:12 Creatinine 0.7 mg/dL (0.8-1.3) L 01/28/21 05:12 Estimated GFR > 60 ml/min 01/28/21 05:12 BUN/Creatinine Ratio 33 % 01/28/21 05:12 Glucose 82 mg/dL (75-100) 01/28/21 05:12 POC Glucose 130 mg/dL (70-105) H 01/28/21 03:51 Calcium 9.1 mg/dL (8.4-10.2) 01/28/21 05:12 Total Bilirubin 0.70 mg/dL (0.1-1.2) 01/28/21 05:12 AST 16 units/L (5-40) 01/28/21 05:12 ALT 13 units/L (7-56) 01/28/21 05:12 Alkaline Phosphatase 102 units/L (35-129) 01/28/21 05:12 Total Protein 7.1 g/dL (6.3-8.2) 01/28/21 05:12 Albumin 4.1 g/dL (3.9-5) 01/28/21 05:12 Albumin/Globulin Ratio 1.4 % 01/28/21 05:12 Triglycerides 131 mg/dL (2-149) 01/28/21 05:12 Cholesterol 182 mg/dL (50-199) 01/28/21 05:12 LDL Cholesterol Direct 117 mg/dL (50-130) 01/28/21 05:12 HDL Cholesterol 49 mg/dL (40-59) 01/28/21 05:12 Cholesterol/HDL Ratio 3.71 % 01/28/21 05:12 TSH 1.960 mlU/mL (0.270-4.200) 01/28/21 05:12 Hepatitis A IgM Ab Non-reactive (NonReactive) 01/28/21 05:12 Hep Bs Antigen Nonreactive (Negative) 01/28/21 05:12 Hep B Core IgM Ab Non-reactive (NonReactive) 01/28/21 05:12 Hepatitis C Antibody Non-reactive (NonReactive) 01/28/21 05:12 Last Vital Signs Temp 98.5 F 01/28/21 09:33 Pulse 70 01/28/21 09:33 Resp 20 01/28/21 09:33 BP 114/48 01/28/21 09:33 Pulse Ox 96 01/28/21 09:33 Physical Examination - Constitutional Vitals: Vital Signs Temp Pulse Resp BP Pulse Ox 98.5 F 70 20 114/48 96 01/28/21 09:33 01/28/21 09:33 01/28/21 09:33 01/28/21 09:33 01/28/21 09:33 Temperature -Last 24 Hours Temperature 98.5 F Mental Status Exam - Vital signs Last Vital Signs Temp 98.5 F 01/28/21 09:33 Pulse 70 01/28/21 09:33 Resp 20 01/28/21 09:33 BP 114/48 01/28/21 09:33 Pulse Ox 96 01/28/21 09:33 Physician Certification - Certification Statement Physician Certification Statement: This is an acknowledgement statement that ÁNGEL HUGHES is a 60 year old M who requires inpatient psychiatric admission for treatment which could reasonably be expected to improve the patient's condition for Estimated period of time patient will need to remain in the hospital: [ ] Plan for post-hospital care: [ ]
--- NOTE | 2021-01-28 15:40 | XRay Report ---
XR chest 1V ap INDICATION / CLINICAL INFORMATION: chest pain. COMPARISON: None available. FINDINGS: SUPPORT DEVICES: None. HEART /PULMONARY VASCULATURE: No significant abnormality. LUNGS / PLEURA: No significant pulmonary or pleural abnormality. No pneumothorax. ADDITIONAL FINDINGS: No significant additional findings. IMPRESSION: 1. No acute findings. Signer Name: Johnny Sotelo MD Signed: 01/28/2021 3:36 PM Workstation Name: [id number]
[2021-01-28] MEDS ORDERED: ACETAMINOPHEN 325 MG TAB PO PRN (22:06)
--- NOTE | 2021-01-29 07:26 | Consultation ---
History of Present Illness - Reason for Consult Consult date: 01/29/21 Medical management - History of Present Illness The patient was seen in the ED: Ángel Baxter is a 60 year old male with history of bipolar disorder presented with worsening depression and suicidal ideation with a plan to overdose on pills. The patient reports noncompliant with psychotropic medications stating he stopped taking meds about a month ago. He is admitted to psych unit for further stabilizatio. Hospitalist service was consulted for medical Mx. Past History Past Medical History: atrial fib (paroxysmal not on AC), hypertension, pulmonary embolism (h/o), other (Bipolar disorder) Past Surgical History: Other (s/p IVC filter) Social history: Lives alone. denies: smoking, alcohol abuse, IV drug use Family history: CAD, diabetes, stroke Review of System: Constitutional: no fever, no chills, no weight loss Ears, eyes, nose, mouth and throat: no nasal congestion, no nasal discharge, no sinus pressure, no vision change, no red eye. Neck: No neck pain or rigidity. Cardiovascular: No chest pain, no orthopnea, no palpitations, no leg swelling Respiratory: No shortness of breath, no cough, no congestion, no wheezing Gastrointestinal: no abdominal pain, no nausea, no vomiting Genitourinary : no dysuria, no hematuria Musculoskeletal: no joint swelling or muscle ache Integumentary: no rash, no pruritis Neurological: no parathesias, no numbness, no tingling Endocrine: no cold or heat intolerance, no polyuria or polydipsia Hematologic/Lymphatic: no easy bruising, no easy bleeding, no gland swelling Allergic/Immunologic: no urticaria, no angioedema. Physical exam: GENERAL: well-developed and well-nourished elderly male lying on bed appeared to be in no discomfort. HEENT: Normocephalic. Atraumatic. No conjunctival congestion or icterus. Patient has moist mucous membranes. NECK: Supple. Trachea midline. CHEST/LUNGS: Clear to auscultated bilaterally, breathing nonlabored. No wheezes crackles or rhonchi. HEART/CARDIOVASCULAR: Regular in rate and rhythm. S1 and S2 positive. ABDOMEN: Abdomen is soft, nontender. Patient has normal bowel sounds. SKIN: There is no rash. Warm and dry. NEURO: No focal motor deficit. Follows command. MUSCULOSKELETAL: No joint effusion or tenderness. EXTRIMITY: No edema, no cyanosis or clubbing. PSYCH: Cooperative. Assessment and plan: --Bipolar disorder, Mx per primary Other chronic issue --atrial fib (paroxysmal not on AC), --hypertension, --pulmonary embolism (h/o) Continue medical Mx, continue home meds --DVT Px, ambulatory Medications and Allergies Allergies Allergy/AdvReac Type Severity Reaction Status Date / Time Hornets Allergy Hives Uncoded 01/26/21 19:42 Home Medications Medication Instructions Recorded Confirmed Last Taken Type Aspirin EC [Halfprin EC] 81 mg PO QDAY #30 tablet. 04/05/20 01/28/21 Unknown Rx Mirtazapine [Remeron 15mg TAB] 15 mg PO QHS #14 tablet 04/05/20 01/28/21 Unknown Rx OLANzapine [ZyPREXA] 10 mg PO QHS #14 tablet 04/05/20 01/28/21 Unknown Rx Apixaban [Eliquis] 5 mg PO BID 01/27/21 01/28/21 Unknown History Acetaminophen [Acetaminophen TAB] 650 mg PO Q6H PRN tablet 02/06/21 Unknown Rx Mirtazapine [Remeron 15mg TAB] 15 mg PO QHS 30 Days #30 tablet 02/06/21 Unknown Rx OLANzapine [ZyPREXA] 15 mg PO QDAY 30 Days #30 tablet 02/06/21 Unknown Rx Sertraline [Zoloft] 50 mg PO QDAY 30 Days #30 tablet 02/06/21 Unknown Rx busPIRone [Buspar] 10 mg PO TID 30 Days #90 tablet 02/06/21 Unknown Rx hydrOXYzine PAMOATE [Vistaril] 25 mg PO BID 30 Days #60 capsule 02/06/21 Unknown Rx Active Meds: Active Medications Acetaminophen (Acetaminophen 325 Mg Tab) 650 mg PO Q6H PRN PRN Reason: Pain, Mild (1-3) Apixaban (Apixaban 5 Mg Tab) 5 mg PO BID [facility] Last Admin: 01/28/21 21:45 Dose: 5 mg Documented by: Aspirin (Aspirin Ec 81 Mg Tab) 81 mg PO QDAY [facility] Last Admin: 01/28/21 10:42 Dose: 81 mg Documented by: Mirtazapine (Mirtazapine 15 Mg Tab) 15 mg PO QHS [facility] Last Admin: 01/28/21 21:48 Dose: 15 mg Documented by: Olanzapine (Olanzapine 10 Mg Tab) 10 mg PO BID [facility] Last Admin: 01/28/21 22:16 Dose: 10 mg Documented by: Exam - Constitutional Vitals: Temp Pulse Resp BP Pulse Ox 98.7 F 67 16 151/89 99 01/28/21 20:04 01/28/21 20:04 01/28/21 20:04 01/28/21 20:04 01/28/21 20:04 Results - Labs CBC & Chem 7: 01/28/21 05:12 01/28/21 05:12
--- NOTE | 2021-01-29 08:33 | Progress Note ---
Subjective Date of service: 01/29/21 Subjective Comment: The patient was seen pacing he reports being depressed and anxious. The patient was asked why he was laying on the floor, he states " I was stressed out." He denies any current suicidal /homicidal ideation and denies hallucinations. Start- Vistaril 25mg po every 6 hours, Buspar 10mg po BID and Ativan 2mg IM every 4 hours for agitation. PAST PSYCHIATRIC HISTORY Diagnoses: Depression Suicide attempts or Self-harm behavior: Yes Prior psychiatric hospitalizations: Yes Substance Abuse history: marijuana Previous psychiatric medications tried: Zyprexa, Remeron Outpatient treatment:unknown PAST MEDICAL HISTORY:None Family Psychiatric History: None reported or documented SOCIAL HISTORY Marital Status: single Living Arrangements: Lives alone Employment Status: [employer] Access to guns/weapons: none reported Education: 10th grade History of Abuse: none reported Legal History: Unknown REVIEW OF SYSTEMS Constitutional: Negative for weight loss ENT: Negative for stridor Respiratory: Negative for cough or hemoptysis All other systems reviewed and are negative MENTAL STATUS EXAMINATION General Appearance and Behavior: Age appropriate, fair hygiene, wearing appropriate clothes, good eye contact, cooperative polite with questioning. Cooperation: Participating/engaged Psychomotor Behavior: unremarkable and within normal limits Mood: Depressed/ anxious Affect and affective range: congruent with mood Thought Process: Fluent/Logical Thought Content: Not Suicidal Speech: Normal volume, Regular rate and rhythm Intellectual Functioning: Average Suicidal Ideation: Denies Homicidal Ideation: Denies Hallucinations:Denies Impulse Control: Unimpaired Insight and Judgment: Limited insight and fair judgment Memory: Normal Attention: Normal, Orientation: Alert, oriented RECOMMENDATIONS Assessment and Plan - Psychiatric problem (1) Major depressive disorder, recurrent, severe-F33.2 Current Visit: Yes Status: Acute Treatment Plan Patient admitted for inpatient psychiatric evaluation, medication adjustment and close monitoring The patient's behavior, mood, sleep and appetite will be closely monitored. Patient enrolled in individual and group therapeutic sessions and encouraged to attend. Patient provided with a safe and structured environment. Patient's physical health needs will be addressed by the Hospitalist. Hospitalist Consulted Labs including CBC, CMP, Lipid profile and Hemoglobin A1C levels ordered for baseline reference Social Assessment will be completed and the Electrical Systems Engineer will work with patient and family to ensure a suitable and safe disposition Medication adjustment will be made as clinically indicated Continued Home medications Start- Vistaril 25mg po every 6 hours, Buspar 10mg po BID for anxiety and Ativan 2mg IM every 4 hours for agitation. Usual Wellness Muslim/Preservation: - Start Trazodone 50 mg po QHS & 50 mg po QHS PRN between 10 PM & 2 AM for insomnia - Start Melatonin 5 mg po QHS to promote circadian rhythm The patient agreed on the treatment plan, understood the risk, benefit, alternative treatment, potential consequence of no treatment, and gave informed consent. Estimated days: 7 Post hospital care: primary care provider, psychiatric provider Case staffed with Dr. Collier Reaction to Hospitalization: Accepting Medications and Allergies Medications and Allergies Allergies Allergy/AdvReac Type Severity Reaction Status Date / Time Hornets Allergy Hives Uncoded 01/26/21 19:42 Home Medications Medication Instructions Recorded Confirmed Last Taken Type Aspirin EC [Halfprin EC] 81 mg PO QDAY #30 tablet. 04/05/20 01/28/21 Unknown Rx Mirtazapine [Remeron 15mg TAB] 15 mg PO QHS #14 tablet 04/05/20 01/28/21 Unknown Rx OLANzapine [ZyPREXA] 10 mg PO QHS #14 tablet 04/05/20 01/28/21 Unknown Rx Apixaban [Eliquis] 5 mg PO BID 01/27/21 01/28/21 Unknown History Active Meds: Active Medications Acetaminophen (Acetaminophen 325 Mg Tab) 650 mg PO Q6H PRN PRN Reason: Pain, Mild (1-3) Apixaban (Apixaban 5 Mg Tab) 5 mg PO BID [facility] Last Admin: 01/28/21 21:45 Dose: 5 mg Documented by: Aspirin (Aspirin Ec 81 Mg Tab) 81 mg PO QDAY [facility] Last Admin: 01/28/21 10:42 Dose: 81 mg Documented by: Buspirone HCl (Buspirone 10 Mg Tab) 10 mg PO BID [facility] Hydroxyzine Pamoate (Hydroxyzine Pamoate 25 Mg Cap) 25 mg PO Q6H PRN PRN Reason: Anxiety Lorazepam (Lorazepam 2 Mg/Ml Vial) 2 mg IV Q4H PRN PRN Reason: Agitation Mirtazapine (Mirtazapine 15 Mg Tab) 15 mg PO QHS [facility] Last Admin: 01/28/21 21:48 Dose: 15 mg Documented by: Olanzapine (Olanzapine 10 Mg Tab) 10 mg PO BID [facility] Last Admin: 01/28/21 22:16 Dose: 10 mg Documented by: Results - Results Labs/Vitals: Laboratory Last Values WBC 3.9 K/mm3 (4.5-11.0) L 01/28/21 05:12 RBC 4.40 M/mm3 (3.65-5.03) 01/28/21 05:12 Hgb 14.4 gm/dl (11.8-15.2) 01/28/21 05:12 Hct 41.8 % (35.5-45.6) 01/28/21 05:12 MCV 95 fl (84-94) H 01/28/21 05:12 MCH 33 pg (28-32) H 01/28/21 05:12 MCHC 34 % (32-34) 01/28/21 05:12 RDW 14.1 % (13.2-15.2) 01/28/21 05:12 Plt Count 154 K/mm3 (140-440) 01/28/21 05:12 Lymph % (Auto) 30.7 % (13.4-35.0) 01/28/21 05:12 [place] % (Auto) 12.5 % (0.0-7.3) H 01/28/21 05:12 Eos % (Auto) 2.9 % (0.0-4.3) 01/28/21 05:12 Baso % (Auto) 1.0 % (0.0-1.8) 01/28/21 05:12 Lymph # (Auto) 1.2 K/mm3 (1.2-5.4) 01/28/21 05:12 [place] # (Auto) 0.5 K/mm3 (0.0-0.8) 01/28/21 05:12 Eos # (Auto) 0.1 K/mm3 (0.0-0.4) 01/28/21 05:12 Baso # (Auto) 0.0 K/mm3 (0.0-0.1) 01/28/21 05:12 Seg Neutrophils % 52.9 % (40.0-70.0) 01/28/21 05:12 Seg Neutrophils # 2.1 K/mm3 (1.8-7.7) 01/28/21 05:12 Sodium 140 mmol/L (137-145) 01/28/21 05:12 Potassium 3.8 mmol/L (3.6-5.0) 01/28/21 05:12 Chloride 106.9 mmol/L (98-107) 01/28/21 05:12 Carbon Dioxide 21 mmol/L (22-30) L 01/28/21 05:12 Anion Gap 16 mmol/L 01/28/21 05:12 BUN 23 mg/dL (9-20) H 01/28/21 05:12 Creatinine 0.7 mg/dL (0.8-1.3) L 01/28/21 05:12 Estimated GFR > 60 ml/min 01/28/21 05:12 BUN/Creatinine Ratio 33 % 01/28/21 05:12 Glucose 82 mg/dL (75-100) 01/28/21 05:12 POC Glucose 130 mg/dL (70-105) H 01/28/21 03:51 Calcium 9.1 mg/dL (8.4-10.2) 01/28/21 05:12 Total Bilirubin 0.70 mg/dL (0.1-1.2) 01/28/21 05:12 AST 16 units/L (5-40) 01/28/21 05:12 ALT 13 units/L (7-56) 01/28/21 05:12 Alkaline Phosphatase 102 units/L (35-129) 01/28/21 05:12 Total Protein 7.1 g/dL (6.3-8.2) 01/28/21 05:12 Albumin 4.1 g/dL (3.9-5) 01/28/21 05:12 Albumin/Globulin Ratio 1.4 % 01/28/21 05:12 Triglycerides 131 mg/dL (2-149) 01/28/21 05:12 Cholesterol 182 mg/dL (50-199) 01/28/21 05:12 LDL Cholesterol Direct 117 mg/dL (50-130) 01/28/21 05:12 HDL Cholesterol 49 mg/dL (40-59) 01/28/21 05:12 Cholesterol/HDL Ratio 3.71 % 01/28/21 05:12 TSH 1.960 mlU/mL (0.270-4.200) 01/28/21 05:12 Hepatitis A IgM Ab Non-reactive (NonReactive) 01/28/21 05:12 Hep Bs Antigen Nonreactive (Negative) 01/28/21 05:12 Hep B Core IgM Ab Non-reactive (NonReactive) 01/28/21 05:12 Hepatitis C Antibody Non-reactive (NonReactive) 01/28/21 05:12 Last Vital Signs Temp 98.7 F 01/28/21 20:04 Pulse 67 01/28/21 20:04 Resp 16 01/28/21 20:04 BP 151/89 01/28/21 20:04 Pulse Ox 99 01/28/21 20:04
[2021-01-29] MEDS ORDERED: hydrOXYzine PAMOATE 25 MG CAP PO PRN (09:00)
[2021-01-29] MEDS ORDERED: LORazepam 2 MG/ML VIAL IV PRN (09:00)
--- NOTE | 2021-01-29 10:35 | Electrocardiograph Report ---
[facility] Test Date: 2021-01-28 Test Time: 14:59:46 Pat Name: NILO HUGHES Department: Room: [place] [address] Gender: M Php Lamp Developer: COLE : 1960 Requested By: HUSSAIN ARCOS Order Number: [id number] Reading MD: Rogerio Arzate Measurements Intervals [place] Rate: 81 P: MO: QRS: 59 QRSD: 80 T: -67 QT: 367 QTc: 426 Interpretive Statements Atrial fibrillation Ventricular premature complex Anteroseptal infarct, old No previous ECG available for comparison Electronically Signed On 01-29-2021 10:35:21 EDT by Rogerio Arzate
[2021-01-29] MEDS: APIXABAN 5 MG TAB PO SCH ×2 (10:58→22:19)
[2021-01-29] MEDS: ASPIRIN EC 81 MG TAB PO SCH (10:58)
[2021-01-29] MEDS: busPIRone 10 MG TAB PO SCH ×2 (10:58→22:20)
[2021-01-29] MEDS: MIRTAZAPINE 15 MG TAB PO SCH (22:19)
--- NOTE | 2021-01-30 09:12 | Progress Note ---
Subjective Date of service: 01/30/21 Principal diagnosis: MDD Subjective Comment: The patient was seen today. He is sitting in the gerber by himself away from people. He says he came in for suicidal thoughts and depression. He says "I want to sign myself out. I'm no longer suicidal." The patient does verbalize severe depression. When asking him what changed to make him no longer suicidal, he replies "I thought about it." REVIEW OF SYSTEMS Constitutional: Negative for weight loss ENT: Negative for stridor Respiratory: Negative for cough or hemoptysis All other systems reviewed and are negative MENTAL STATUS EXAMINATION General Appearance and Behavior: Age appropriate, fair hygiene, wearing appropriate clothes, good eye contact, cooperative polite with questioning. Cooperation: Participating/engaged Psychomotor Behavior: unremarkable and within normal limits Mood: severe depression Affect and affective range: congruent with mood Thought Process: Fluent/Logical Thought Content: depression Speech: Normal volume, Regular rate and rhythm Intellectual Functioning: Average Suicidal Ideation: Denies Homicidal Ideation: Denies Hallucinations:Denies Impulse Control: Unimpaired Insight and Judgment: Limited insight and fair judgment Memory: Normal Attention: Normal, Orientation: Alert, oriented Assessment (1) Major depressive disorder, recurrent, severe-F33.2 Current Visit: Yes Status: Acute Treatment Plan Patient admitted for inpatient psychiatric evaluation, medication adjustment and close monitoring The patient's behavior, mood, sleep and appetite will be closely monitored. Patient enrolled in individual and group therapeutic sessions and encouraged to attend. Patient provided with a safe and structured environment. Patient's physical health needs will be addressed by the Hospitalist. Hospitalist Consulted Labs including CBC, CMP, Lipid profile and Hemoglobin A1C levels ordered for baseline reference Social Assessment will be completed and the Director Radio will work with patient and family to ensure a suitable and safe disposition Medication adjustment will be made as clinically indicated Start Zoloft 25mg po daily Usual Wellness Gnosticist/Preservation: - Start Trazodone 50 mg po QHS & 50 mg po QHS PRN between 10 PM & 2 AM for insomnia - Start Melatonin 5 mg po QHS to promote circadian rhythm The patient agreed on the treatment plan, understood the risk, benefit, alternative treatment, potential consequence of no treatment, and gave informed consent. Estimated days: 5 Post hospital care: primary care provider, psychiatric provider Case staffed with Dr. Collier Medications and Allergies Allergies Allergy/AdvReac Type Severity Reaction Status Date / Time Hornets Allergy Hives Uncoded 01/26/21 19:42 Home Medications Medication Instructions Recorded Confirmed Last Taken Type Aspirin EC [Halfprin EC] 81 mg PO QDAY #30 tablet. 04/05/20 01/28/21 Unknown Rx Mirtazapine [Remeron 15mg TAB] 15 mg PO QHS #14 tablet 04/05/20 01/28/21 Unknown Rx OLANzapine [ZyPREXA] 10 mg PO QHS #14 tablet 04/05/20 01/28/21 Unknown Rx Apixaban [Eliquis] 5 mg PO BID 01/27/21 01/28/21 Unknown History Active Meds: Active Medications Acetaminophen (Acetaminophen 325 Mg Tab) 650 mg PO Q6H PRN PRN Reason: Pain, Mild (1-3) Apixaban (Apixaban 5 Mg Tab) 5 mg PO BID [facility] Last Admin: 01/29/21 22:19 Dose: 5 mg Documented by: Aspirin (Aspirin Ec 81 Mg Tab) 81 mg PO QDAY [facility] Last Admin: 01/29/21 10:58 Dose: 81 mg Documented by: Buspirone HCl (Buspirone 10 Mg Tab) 10 mg PO BID [facility] Last Admin: 01/29/21 22:20 Dose: 10 mg Documented by: Hydroxyzine Pamoate (Hydroxyzine Pamoate 25 Mg Cap) 25 mg PO Q6H PRN PRN Reason: Anxiety Lorazepam (Lorazepam 2 Mg/Ml Vial) 2 mg IV Q4H PRN PRN Reason: Agitation Mirtazapine (Mirtazapine 15 Mg Tab) 15 mg PO QHS [facility] Last Admin: 01/29/21 22:19 Dose: 15 mg Documented by: Olanzapine (Olanzapine 10 Mg Tab) 10 mg PO BID [facility] Last Admin: 01/29/21 22:19 Dose: 10 mg Documented by: Results - Results Labs/Vitals: Laboratory Last Values WBC 3.9 K/mm3 (4.5-11.0) L 01/28/21 05:12 RBC 4.40 M/mm3 (3.65-5.03) 01/28/21 05:12 Hgb 14.4 gm/dl (11.8-15.2) 01/28/21 05:12 Hct 41.8 % (35.5-45.6) 01/28/21 05:12 MCV 95 fl (84-94) H 01/28/21 05:12 MCH 33 pg (28-32) H 01/28/21 05:12 MCHC 34 % (32-34) 01/28/21 05:12 RDW 14.1 % (13.2-15.2) 01/28/21 05:12 Plt Count 154 K/mm3 (140-440) 01/28/21 05:12 Lymph % (Auto) 30.7 % (13.4-35.0) 01/28/21 05:12 [place] % (Auto) 12.5 % (0.0-7.3) H 01/28/21 05:12 Eos % (Auto) 2.9 % (0.0-4.3) 01/28/21 05:12 Baso % (Auto) 1.0 % (0.0-1.8) 01/28/21 05:12 Lymph # (Auto) 1.2 K/mm3 (1.2-5.4) 01/28/21 05:12 [place] # (Auto) 0.5 K/mm3 (0.0-0.8) 01/28/21 05:12 Eos # (Auto) 0.1 K/mm3 (0.0-0.4) 01/28/21 05:12 Baso # (Auto) 0.0 K/mm3 (0.0-0.1) 01/28/21 05:12 Seg Neutrophils % 52.9 % (40.0-70.0) 01/28/21 05:12 Seg Neutrophils # 2.1 K/mm3 (1.8-7.7) 01/28/21 05:12 Sodium 140 mmol/L (137-145) 01/28/21 05:12 Potassium 3.8 mmol/L (3.6-5.0) 01/28/21 05:12 Chloride 106.9 mmol/L (98-107) 01/28/21 05:12 Carbon Dioxide 21 mmol/L (22-30) L 01/28/21 05:12 Anion Gap 16 mmol/L 01/28/21 05:12 BUN 23 mg/dL (9-20) H 01/28/21 05:12 Creatinine 0.7 mg/dL (0.8-1.3) L 01/28/21 05:12 Estimated GFR > 60 ml/min 01/28/21 05:12 BUN/Creatinine Ratio 33 % 01/28/21 05:12 Glucose 82 mg/dL (75-100) 01/28/21 05:12 POC Glucose 130 mg/dL (70-105) H 01/28/21 03:51 Calcium 9.1 mg/dL (8.4-10.2) 01/28/21 05:12 Total Bilirubin 0.70 mg/dL (0.1-1.2) 01/28/21 05:12 AST 16 units/L (5-40) 01/28/21 05:12 ALT 13 units/L (7-56) 01/28/21 05:12 Alkaline Phosphatase 102 units/L (35-129) 01/28/21 05:12 Total Protein 7.1 g/dL (6.3-8.2) 01/28/21 05:12 Albumin 4.1 g/dL (3.9-5) 01/28/21 05:12 Albumin/Globulin Ratio 1.4 % 01/28/21 05:12 Triglycerides 131 mg/dL (2-149) 01/28/21 05:12 Cholesterol 182 mg/dL (50-199) 01/28/21 05:12 LDL Cholesterol Direct 117 mg/dL (50-130) 01/28/21 05:12 HDL Cholesterol 49 mg/dL (40-59) 01/28/21 05:12 Cholesterol/HDL Ratio 3.71 % 01/28/21 05:12 TSH 1.960 mlU/mL (0.270-4.200) 01/28/21 05:12 Hepatitis A IgM Ab Non-reactive (NonReactive) 01/28/21 05:12 Hep Bs Antigen Nonreactive (Negative) 01/28/21 05:12 Hep B Core IgM Ab Non-reactive (NonReactive) 01/28/21 05:12 Hepatitis C Antibody Non-reactive (NonReactive) 01/28/21 05:12 Last Vital Signs Temp 98.5 F 01/29/21 19:50 Pulse 70 01/29/21 19:50 Resp 18 01/29/21 19:50 BP 93/60 01/29/21 19:50 Pulse Ox 97 01/29/21 19:50
[2021-01-30] MEDS: busPIRone 10 MG TAB PO SCH ×2 (10:24→22:24)
[2021-01-30] MEDS: ASPIRIN EC 81 MG TAB PO SCH (10:24)
[2021-01-30] MEDS: APIXABAN 5 MG TAB PO SCH ×2 (10:24→22:26)
[2021-01-30] MEDS: SERTRALINE 25 MG TAB PO SCH (10:25)
--- NOTE | 2021-01-30 10:29 | Event Note ---
Date: 01/30/21 The patient is sitting the gerber and has to be constantly redirected to move from in front of the door. He appears to be attention seeking. He says his anxiety is bad and states he feels faint and refuses to lay down or sit down. I finally get the patient to go to his room. He is reluctant to cooperate and staff says he complains of somatic symptoms a lot. VSS done by nelson. Klonopin 0.25mg po BID x 3 days ordered
[2021-01-30] MEDS: clonazePAM 0.5 MG TAB PO SCH ×2 (11:53→22:24)
[2021-01-30] MEDS: MIRTAZAPINE 15 MG TAB PO SCH (22:25)
[2021-01-31] MEDS: clonazePAM 0.5 MG TAB PO SCH ×2 (09:13→22:06)
[2021-01-31] MEDS: ASPIRIN EC 81 MG TAB PO SCH (09:13)
[2021-01-31] MEDS: APIXABAN 5 MG TAB PO SCH ×2 (09:13→22:07)
[2021-01-31] MEDS: SERTRALINE 25 MG TAB PO SCH (09:13)
[2021-01-31] MEDS: busPIRone 10 MG TAB PO SCH ×2 (09:14→22:05)
--- NOTE | 2021-01-31 10:14 | Progress Note ---
Subjective Date of service: 01/31/21 Principal diagnosis: MDD Subjective Comment: Per Nurse Note: Pt observed overnight to continue to act bizarre and weird sleeping on the floor with his body against the door. Encouraged to sleep on the bed. He paranoid and suspicious. "I'm afraid for my safety," he verbalized. Pt have no insight to situation. Withdrawn to self and interacting with peers or staff. However, pt compliant with medications and no acute distress observed and none reported. Will continue to monitor. The patient was seen today. He is walking in the gerber. He tells me the klonopin made him "feel much better." He denies SI/HI or hallucinations of any kind. REVIEW OF SYSTEMS Constitutional: Negative for weight loss ENT: Negative for stridor Respiratory: Negative for cough or hemoptysis All other systems reviewed and are negative MENTAL STATUS EXAMINATION General Appearance and Behavior: Age appropriate, fair hygiene, wearing appropriate clothes, good eye contact, cooperative polite with questioning. Cooperation: Participating/engaged Psychomotor Behavior: unremarkable and within normal limits Mood: severe depression Affect and affective range: congruent with mood Thought Process: Fluent/Logical Thought Content: depression Speech: Normal volume, Regular rate and rhythm Intellectual Functioning: Average Suicidal Ideation: Denies Homicidal Ideation: Denies Hallucinations:Denies Impulse Control: Unimpaired Insight and Judgment: Limited insight and fair judgment Memory: Normal Attention: Normal, Orientation: Alert, oriented Assessment (1) Major depressive disorder, recurrent, severe-F33.2 Current Visit: Yes Status: Acute Treatment Plan Patient admitted for inpatient psychiatric evaluation, medication adjustment and close monitoring The patient's behavior, mood, sleep and appetite will be closely monitored. Patient enrolled in individual and group therapeutic sessions and encouraged to attend. Patient provided with a safe and structured environment. Patient's physical health needs will be addressed by the Hospitalist. Hospitalist Consulted Labs including CBC, CMP, Lipid profile and Hemoglobin A1C levels ordered for baseline reference Social Assessment will be completed and the Folder Stitcher Operator will work with patient and family to ensure a suitable and safe disposition Medication adjustment will be made as clinically indicated Start Zoloft 25mg po daily yesterday Increased Olanzapine 15mg po daily (nursing staff reports suspicion and paranoia) Continue Klonopin 0.25mg po daily x 3 days Usual Wellness Anglican/Preservation: - Start Trazodone 50 mg po QHS & 50 mg po QHS PRN between 10 PM & 2 AM for insomnia - Start Melatonin 5 mg po QHS to promote circadian rhythm The patient agreed on the treatment plan, understood the risk, benefit, alternative treatment, potential consequence of no treatment, and gave informed consent. Estimated days: 5 Post hospital care: primary care provider, psychiatric provider Case staffed with Dr. Collier Medications and Allergies Allergies Allergy/AdvReac Type Severity Reaction Status Date / Time Hornets Allergy Hives Uncoded 01/26/21 19:42 Home Medications Medication Instructions Recorded Confirmed Last Taken Type Aspirin EC [Halfprin EC] 81 mg PO QDAY #30 tablet. 04/05/20 01/28/21 Unknown Rx Mirtazapine [Remeron 15mg TAB] 15 mg PO QHS #14 tablet 04/05/20 01/28/21 Unknown Rx OLANzapine [ZyPREXA] 10 mg PO QHS #14 tablet 04/05/20 01/28/21 Unknown Rx Apixaban [Eliquis] 5 mg PO BID 01/27/21 01/28/21 Unknown History Active Meds: Active Medications Acetaminophen (Acetaminophen 325 Mg Tab) 650 mg PO Q6H PRN PRN Reason: Pain, Mild (1-3) Apixaban (Apixaban 5 Mg Tab) 5 mg PO BID [facility] Last Admin: 01/31/21 09:13 Dose: 5 mg Documented by: Aspirin (Aspirin Ec 81 Mg Tab) 81 mg PO QDAY [facility] Last Admin: 01/31/21 09:13 Dose: 81 mg Documented by: Buspirone HCl (Buspirone 10 Mg Tab) 10 mg PO BID [facility] Last Admin: 01/31/21 09:14 Dose: 10 mg Documented by: Clonazepam (Clonazepam 0.5 Mg Tab) 0.25 mg PO BID [facility] Stop: 02/02/21 06:00 Last Admin: 01/31/21 09:13 Dose: 0.25 mg Documented by: Hydroxyzine Pamoate (Hydroxyzine Pamoate 25 Mg Cap) 25 mg PO Q6H PRN PRN Reason: Anxiety Lorazepam (Lorazepam 2 Mg/Ml Vial) 2 mg IV Q4H PRN PRN Reason: Agitation Mirtazapine (Mirtazapine 15 Mg Tab) 15 mg PO QHS [facility] Last Admin: 01/30/21 22:25 Dose: 15 mg Documented by: Olanzapine (Olanzapine 10 Mg Tab) 10 mg PO BID [facility] Last Admin: 01/31/21 09:13 Dose: 10 mg Documented by: Sertraline HCl (Sertraline 25 Mg Tab) 25 mg PO QDAY [facility] Last Admin: 01/31/21 09:13 Dose: 25 mg Documented by: Results - Results Labs/Vitals: Laboratory Last Values WBC 3.9 K/mm3 (4.5-11.0) L 01/28/21 05:12 RBC 4.40 M/mm3 (3.65-5.03) 01/28/21 05:12 Hgb 14.4 gm/dl (11.8-15.2) 01/28/21 05:12 Hct 41.8 % (35.5-45.6) 01/28/21 05:12 MCV 95 fl (84-94) H 01/28/21 05:12 MCH 33 pg (28-32) H 01/28/21 05:12 MCHC 34 % (32-34) 01/28/21 05:12 RDW 14.1 % (13.2-15.2) 01/28/21 05:12 Plt Count 154 K/mm3 (140-440) 01/28/21 05:12 Lymph % (Auto) 30.7 % (13.4-35.0) 01/28/21 05:12 [place] % (Auto) 12.5 % (0.0-7.3) H 01/28/21 05:12 Eos % (Auto) 2.9 % (0.0-4.3) 01/28/21 05:12 Baso % (Auto) 1.0 % (0.0-1.8) 01/28/21 05:12 Lymph # (Auto) 1.2 K/mm3 (1.2-5.4) 01/28/21 05:12 [place] # (Auto) 0.5 K/mm3 (0.0-0.8) 01/28/21 05:12 Eos # (Auto) 0.1 K/mm3 (0.0-0.4) 01/28/21 05:12 Baso # (Auto) 0.0 K/mm3 (0.0-0.1) 01/28/21 05:12 Seg Neutrophils % 52.9 % (40.0-70.0) 01/28/21 05:12 Seg Neutrophils # 2.1 K/mm3 (1.8-7.7) 01/28/21 05:12 Sodium 140 mmol/L (137-145) 01/28/21 05:12 Potassium 3.8 mmol/L (3.6-5.0) 01/28/21 05:12 Chloride 106.9 mmol/L (98-107) 01/28/21 05:12 Carbon Dioxide 21 mmol/L (22-30) L 01/28/21 05:12 Anion Gap 16 mmol/L 01/28/21 05:12 BUN 23 mg/dL (9-20) H 01/28/21 05:12 Creatinine 0.7 mg/dL (0.8-1.3) L 01/28/21 05:12 Estimated GFR > 60 ml/min 01/28/21 05:12 BUN/Creatinine Ratio 33 % 01/28/21 05:12 Glucose 82 mg/dL (75-100) 01/28/21 05:12 POC Glucose 130 mg/dL (70-105) H 01/28/21 03:51 Calcium 9.1 mg/dL (8.4-10.2) 01/28/21 05:12 Total Bilirubin 0.70 mg/dL (0.1-1.2) 01/28/21 05:12 AST 16 units/L (5-40) 01/28/21 05:12 ALT 13 units/L (7-56) 01/28/21 05:12 Alkaline Phosphatase 102 units/L (35-129) 01/28/21 05:12 Total Protein 7.1 g/dL (6.3-8.2) 01/28/21 05:12 Albumin 4.1 g/dL (3.9-5) 01/28/21 05:12 Albumin/Globulin Ratio 1.4 % 01/28/21 05:12 Triglycerides 131 mg/dL (2-149) 01/28/21 05:12 Cholesterol 182 mg/dL (50-199) 01/28/21 05:12 LDL Cholesterol Direct 117 mg/dL (50-130) 01/28/21 05:12 HDL Cholesterol 49 mg/dL (40-59) 01/28/21 05:12 Cholesterol/HDL Ratio 3.71 % 01/28/21 05:12 TSH 1.960 mlU/mL (0.270-4.200) 01/28/21 05:12 Hepatitis A IgM Ab Non-reactive (NonReactive) 01/28/21 05:12 Hep Bs Antigen Nonreactive (Negative) 01/28/21 05:12 Hep B Core IgM Ab Non-reactive (NonReactive) 01/28/21 05:12 Hepatitis C Antibody Non-reactive (NonReactive) 01/28/21 05:12 Last Vital Signs Temp 97.9 F 01/30/21 07:40 Pulse 73 01/30/21 07:40 Resp 18 01/30/21 07:40 BP 165/93 01/30/21 07:40 Pulse Ox 95 01/30/21 07:40
[2021-01-31] MEDS: MIRTAZAPINE 15 MG TAB PO SCH (22:05)
[2021-02-01] MEDS: SERTRALINE 25 MG TAB PO SCH (09:07)
[2021-02-01] MEDS: clonazePAM 0.5 MG TAB PO SCH ×3 (09:07→23:58)
[2021-02-01] MEDS: ASPIRIN EC 81 MG TAB PO SCH (09:07)
[2021-02-01] MEDS: APIXABAN 5 MG TAB PO SCH ×3 (09:07→23:58)
[2021-02-01] MEDS: busPIRone 10 MG TAB PO SCH ×4 (09:07→23:58)
--- NOTE | 2021-02-01 10:23 | Progress Note ---
Subjective Date of service: 02/01/21 Principal diagnosis: MDD Subjective Comment: The patient was seen today. He is walking in the gerber. He tells me he feels weird. He says "I feel like people are after me." He also says he feels very anxious. He denies SI/HI or hallucianations of any kind. REVIEW OF SYSTEMS Constitutional: Negative for weight loss ENT: Negative for stridor Respiratory: Negative for cough or hemoptysis All other systems reviewed and are negative MENTAL STATUS EXAMINATION General Appearance and Behavior: Age appropriate, fair hygiene, wearing appropriate clothes, good eye contact, cooperative polite with questioning. Cooperation: Participating/engaged Psychomotor Behavior: unremarkable and within normal limits Mood: anxious Affect and affective range: congruent with mood Thought Process: Fluent/Logical Thought Content: depression Speech: Normal volume, Regular rate and rhythm Intellectual Functioning: Average Suicidal Ideation: Denies Homicidal Ideation: Denies Hallucinations:Denies Impulse Control: Unimpaired Insight and Judgment: Limited insight and fair judgment Memory: Normal Attention: Normal, Orientation: Alert, oriented Assessment (1) Major depressive disorder, recurrent, severe-F33.2 (2) Generalized Anxiety Disorder Current Visit: Yes Status: Acute Treatment Plan Patient admitted for inpatient psychiatric evaluation, medication adjustment and close monitoring The patient's behavior, mood, sleep and appetite will be closely monitored. Patient enrolled in individual and group therapeutic sessions and encouraged to attend. Patient provided with a safe and structured environment. Patient's physical health needs will be addressed by the Hospitalist. Hospitalist Consulted Labs including CBC, CMP, Lipid profile and Hemoglobin A1C levels ordered for baseline reference Social Assessment will be completed and the Senior Estimator will work with patient and family to ensure a suitable and safe disposition Medication adjustment will be made as clinically indicated Increased Zoloft 50mg po daily Increased Olanzapine 15mg po daily yesterday Increased Buspar 10mg po TID Changed Vistaril to scheduled Continue Klonopin 0.25mg po daily x 3 days Usual Wellness Church/Preservation: - Start Trazodone 50 mg po QHS & 50 mg po QHS PRN between 10 PM & 2 AM for insomnia - Start Melatonin 5 mg po QHS to promote circadian rhythm The patient agreed on the treatment plan, understood the risk, benefit, alternative treatment, potential consequence of no treatment, and gave informed consent. Estimated days: 5 Post hospital care: primary care provider, psychiatric provider Case staffed with Dr. Collier Medications and Allergies Allergies Allergy/AdvReac Type Severity Reaction Status Date / Time Hornets Allergy Hives Uncoded 01/26/21 19:42 Home Medications Medication Instructions Recorded Confirmed Last Taken Type Aspirin EC [Halfprin EC] 81 mg PO QDAY #30 tablet. 04/05/20 01/28/21 Unknown Rx Mirtazapine [Remeron 15mg TAB] 15 mg PO QHS #14 tablet 04/05/20 01/28/21 Unknown Rx OLANzapine [ZyPREXA] 10 mg PO QHS #14 tablet 04/05/20 01/28/21 Unknown Rx Apixaban [Eliquis] 5 mg PO BID 01/27/21 01/28/21 Unknown History Active Meds: Active Medications Acetaminophen (Acetaminophen 325 Mg Tab) 650 mg PO Q6H PRN PRN Reason: Pain, Mild (1-3) Apixaban (Apixaban 5 Mg Tab) 5 mg PO BID [facility] Last Admin: 02/01/21 09:07 Dose: 5 mg Documented by: Aspirin (Aspirin Ec 81 Mg Tab) 81 mg PO QDAY [facility] Last Admin: 02/01/21 09:07 Dose: 81 mg Documented by: Buspirone HCl (Buspirone 10 Mg Tab) 10 mg PO BID [facility] Last Admin: 02/01/21 09:07 Dose: 10 mg Documented by: Clonazepam (Clonazepam 0.5 Mg Tab) 0.25 mg PO BID [facility] Stop: 02/02/21 06:00 Last Admin: 02/01/21 09:07 Dose: 0.25 mg Documented by: Hydroxyzine Pamoate (Hydroxyzine Pamoate 25 Mg Cap) 25 mg PO Q6H PRN PRN Reason: Anxiety Lorazepam (Lorazepam 2 Mg/Ml Vial) 2 mg IV Q4H PRN PRN Reason: Agitation Mirtazapine (Mirtazapine 15 Mg Tab) 15 mg PO QHS [facility] Last Admin: 01/31/21 22:05 Dose: 15 mg Documented by: Olanzapine (Olanzapine 7.5 Mg Tab) 15 mg PO QDAY [facility] Last Admin: 02/01/21 09:07 Dose: 15 mg Documented by: Sertraline HCl (Sertraline 25 Mg Tab) 25 mg PO QDAY [facility] Last Admin: 02/01/21 09:07 Dose: 25 mg Documented by: Results - Results Labs/Vitals: Laboratory Last Values WBC 3.9 K/mm3 (4.5-11.0) L 01/28/21 05:12 RBC 4.40 M/mm3 (3.65-5.03) 01/28/21 05:12 Hgb 14.4 gm/dl (11.8-15.2) 01/28/21 05:12 Hct 41.8 % (35.5-45.6) 01/28/21 05:12 MCV 95 fl (84-94) H 01/28/21 05:12 MCH 33 pg (28-32) H 01/28/21 05:12 MCHC 34 % (32-34) 01/28/21 05:12 RDW 14.1 % (13.2-15.2) 01/28/21 05:12 Plt Count 154 K/mm3 (140-440) 01/28/21 05:12 Lymph % (Auto) 30.7 % (13.4-35.0) 01/28/21 05:12 [place] % (Auto) 12.5 % (0.0-7.3) H 01/28/21 05:12 Eos % (Auto) 2.9 % (0.0-4.3) 01/28/21 05:12 Baso % (Auto) 1.0 % (0.0-1.8) 01/28/21 05:12 Lymph # (Auto) 1.2 K/mm3 (1.2-5.4) 01/28/21 05:12 [place] # (Auto) 0.5 K/mm3 (0.0-0.8) 01/28/21 05:12 Eos # (Auto) 0.1 K/mm3 (0.0-0.4) 01/28/21 05:12 Baso # (Auto) 0.0 K/mm3 (0.0-0.1) 01/28/21 05:12 Seg Neutrophils % 52.9 % (40.0-70.0) 01/28/21 05:12 Seg Neutrophils # 2.1 K/mm3 (1.8-7.7) 01/28/21 05:12 Sodium 140 mmol/L (137-145) 01/28/21 05:12 Potassium 3.8 mmol/L (3.6-5.0) 01/28/21 05:12 Chloride 106.9 mmol/L (98-107) 01/28/21 05:12 Carbon Dioxide 21 mmol/L (22-30) L 01/28/21 05:12 Anion Gap 16 mmol/L 01/28/21 05:12 BUN 23 mg/dL (9-20) H 01/28/21 05:12 Creatinine 0.7 mg/dL (0.8-1.3) L 01/28/21 05:12 Estimated GFR > 60 ml/min 01/28/21 05:12 BUN/Creatinine Ratio 33 % 01/28/21 05:12 Glucose 82 mg/dL (75-100) 01/28/21 05:12 POC Glucose 130 mg/dL (70-105) H 01/28/21 03:51 Calcium 9.1 mg/dL (8.4-10.2) 01/28/21 05:12 Total Bilirubin 0.70 mg/dL (0.1-1.2) 01/28/21 05:12 AST 16 units/L (5-40) 01/28/21 05:12 ALT 13 units/L (7-56) 01/28/21 05:12 Alkaline Phosphatase 102 units/L (35-129) 01/28/21 05:12 Total Protein 7.1 g/dL (6.3-8.2) 01/28/21 05:12 Albumin 4.1 g/dL (3.9-5) 01/28/21 05:12 Albumin/Globulin Ratio 1.4 % 01/28/21 05:12 Triglycerides 131 mg/dL (2-149) 01/28/21 05:12 Cholesterol 182 mg/dL (50-199) 01/28/21 05:12 LDL Cholesterol Direct 117 mg/dL (50-130) 01/28/21 05:12 HDL Cholesterol 49 mg/dL (40-59) 01/28/21 05:12 Cholesterol/HDL Ratio 3.71 % 01/28/21 05:12 TSH 1.960 mlU/mL (0.270-4.200) 01/28/21 05:12 Hepatitis A IgM Ab Non-reactive (NonReactive) 01/28/21 05:12 Hep Bs Antigen Nonreactive (Negative) 01/28/21 05:12 Hep B Core IgM Ab Non-reactive (NonReactive) 01/28/21 05:12 Hepatitis C Antibody Non-reactive (NonReactive) 01/28/21 05:12 Last Vital Signs Temp 97.7 F 02/01/21 07:46 Pulse 93 H 02/01/21 07:46 Resp 16 02/01/21 07:46 BP 120/71 02/01/21 07:46 Pulse Ox 99 02/01/21 07:46
[2021-02-01] MEDS: MIRTAZAPINE 15 MG TAB PO SCH ×2 (22:51→23:58)
[2021-02-01] MEDS: hydrOXYzine PAMOATE 25 MG CAP PO SCH (23:57)
--- NOTE | 2021-02-02 09:25 | Progress Note ---
Subjective Date of service: 02/02/21 Principal diagnosis: MDD Subjective Comment: The patient was seen today. He appears much calm today than yesterday. He is reading his Bible. He says "I prayer is helping a lot and I think the meds too." He denies SI/HI or hallucinations of any kind. Reason for continued inpatient treatment: The patient appears to be improving, but he has episodes of paranoia and high anxiety REVIEW OF SYSTEMS Constitutional: Negative for weight loss ENT: Negative for stridor Respiratory: Negative for cough or hemoptysis All other systems reviewed and are negative MENTAL STATUS EXAMINATION General Appearance and Behavior: Age appropriate, fair hygiene, wearing appropriate clothes, good eye contact, cooperative polite with questioning. Cooperation: Participating/engaged Psychomotor Behavior: unremarkable and within normal limits Mood: anxious Affect and affective range: congruent with mood Thought Process: Fluent/Logical Thought Content: depression Speech: Normal volume, Regular rate and rhythm Intellectual Functioning: Average Suicidal Ideation: Denies Homicidal Ideation: Denies Hallucinations:Denies Impulse Control: Unimpaired Insight and Judgment: Limited insight and fair judgment Memory: Normal Attention: Normal, Orientation: Alert, oriented Assessment (1) Major depressive disorder, recurrent, severe-F33.2 (2) Generalized Anxiety Disorder Current Visit: Yes Status: Acute Treatment Plan Patient admitted for inpatient psychiatric evaluation, medication adjustment and close monitoring The patient's behavior, mood, sleep and appetite will be closely monitored. Patient enrolled in individual and group therapeutic sessions and encouraged to attend. Patient provided with a safe and structured environment. Patient's physical health needs will be addressed by the Hospitalist. Hospitalist Consulted Labs including CBC, CMP, Lipid profile and Hemoglobin A1C levels ordered for baseline reference Social Assessment will be completed and the Machine Iii Coremaker will work with patient and family to ensure a suitable and safe disposition Medication adjustment will be made as clinically indicated Increased Zoloft 50mg po daily yesterday Continue Olanzapine 15mg po daily Increased Buspar 10mg po TID yesterday Changed Vistaril to scheduled yesterday No changes made today Usual Wellness Muslim/Preservation: - Start Trazodone 50 mg po QHS & 50 mg po QHS PRN between 10 PM & 2 AM for insomnia - Start Melatonin 5 mg po QHS to promote circadian rhythm The patient agreed on the treatment plan, understood the risk, benefit, alternative treatment, potential consequence of no treatment, and gave informed consent. Estimated days: 3 Post hospital care: primary care provider, psychiatric provider Case staffed with Dr. Collier Medications and Allergies Allergies Allergy/AdvReac Type Severity Reaction Status Date / Time Hornets Allergy Hives Uncoded 01/26/21 19:42 Home Medications Medication Instructions Recorded Confirmed Last Taken Type Aspirin EC [Halfprin EC] 81 mg PO QDAY #30 tablet. 04/05/20 01/28/21 Unknown Rx Mirtazapine [Remeron 15mg TAB] 15 mg PO QHS #14 tablet 04/05/20 01/28/21 Unknown Rx OLANzapine [ZyPREXA] 10 mg PO QHS #14 tablet 04/05/20 01/28/21 Unknown Rx Apixaban [Eliquis] 5 mg PO BID 01/27/21 01/28/21 Unknown History Active Meds: Active Medications Acetaminophen (Acetaminophen 325 Mg Tab) 650 mg PO Q6H PRN PRN Reason: Pain, Mild (1-3) Apixaban (Apixaban 5 Mg Tab) 5 mg PO BID ON LICENSE OF [facility] Last Admin: 02/01/21 23:58 Dose: Not Given Documented by: Aspirin (Aspirin Ec 81 Mg Tab) 81 mg PO QDAY ON LICENSE OF [facility] Last Admin: 02/01/21 09:07 Dose: 81 mg Documented by: Buspirone HCl (Buspirone 10 Mg Tab) 10 mg PO TID ON LICENSE OF [facility] Last Admin: 02/01/21 23:58 Dose: Not Given Documented by: Hydroxyzine Pamoate (Hydroxyzine Pamoate 25 Mg Cap) 25 mg PO BID ON LICENSE OF [facility] Last Admin: 02/01/21 23:57 Dose: Not Given Documented by: Lorazepam (Lorazepam 2 Mg/Ml Vial) 2 mg IV Q4H PRN PRN Reason: Agitation Mirtazapine (Mirtazapine 15 Mg Tab) 15 mg PO QHS ON LICENSE OF [facility] Last Admin: 02/01/21 23:58 Dose: Not Given Documented by: Olanzapine (Olanzapine 7.5 Mg Tab) 15 mg PO QDAY ON LICENSE OF [facility] Last Admin: 02/01/21 09:07 Dose: 15 mg Documented by: Sertraline HCl (Sertraline 50 Mg Tab) 50 mg PO QDAY ON LICENSE OF [facility] Results - Results Labs/Vitals: Laboratory Last Values WBC 3.9 K/mm3 (4.5-11.0) L 01/28/21 05:12 RBC 4.40 M/mm3 (3.65-5.03) 01/28/21 05:12 Hgb 14.4 gm/dl (11.8-15.2) 01/28/21 05:12 Hct 41.8 % (35.5-45.6) 01/28/21 05:12 MCV 95 fl (84-94) H 01/28/21 05:12 MCH 33 pg (28-32) H 01/28/21 05:12 MCHC 34 % (32-34) 01/28/21 05:12 RDW 14.1 % (13.2-15.2) 01/28/21 05:12 Plt Count 154 K/mm3 (140-440) 01/28/21 05:12 Lymph % (Auto) 30.7 % (13.4-35.0) 01/28/21 05:12 [place] % (Auto) 12.5 % (0.0-7.3) H 01/28/21 05:12 Eos % (Auto) 2.9 % (0.0-4.3) 01/28/21 05:12 Baso % (Auto) 1.0 % (0.0-1.8) 01/28/21 05:12 Lymph # (Auto) 1.2 K/mm3 (1.2-5.4) 01/28/21 05:12 [place] # (Auto) 0.5 K/mm3 (0.0-0.8) 01/28/21 05:12 Eos # (Auto) 0.1 K/mm3 (0.0-0.4) 01/28/21 05:12 Baso # (Auto) 0.0 K/mm3 (0.0-0.1) 01/28/21 05:12 Seg Neutrophils % 52.9 % (40.0-70.0) 01/28/21 05:12 Seg Neutrophils # 2.1 K/mm3 (1.8-7.7) 01/28/21 05:12 Sodium 140 mmol/L (137-145) 01/28/21 05:12 Potassium 3.8 mmol/L (3.6-5.0) 01/28/21 05:12 Chloride 106.9 mmol/L (98-107) 01/28/21 05:12 Carbon Dioxide 21 mmol/L (22-30) L 01/28/21 05:12 Anion Gap 16 mmol/L 01/28/21 05:12 BUN 23 mg/dL (9-20) H 01/28/21 05:12 Creatinine 0.7 mg/dL (0.8-1.3) L 01/28/21 05:12 Estimated GFR > 60 ml/min 01/28/21 05:12 BUN/Creatinine Ratio 33 % 01/28/21 05:12 Glucose 82 mg/dL (75-100) 01/28/21 05:12 POC Glucose 130 mg/dL (70-105) H 01/28/21 03:51 Calcium 9.1 mg/dL (8.4-10.2) 01/28/21 05:12 Total Bilirubin 0.70 mg/dL (0.1-1.2) 01/28/21 05:12 AST 16 units/L (5-40) 01/28/21 05:12 ALT 13 units/L (7-56) 01/28/21 05:12 Alkaline Phosphatase 102 units/L (35-129) 01/28/21 05:12 Total Protein 7.1 g/dL (6.3-8.2) 01/28/21 05:12 Albumin 4.1 g/dL (3.9-5) 01/28/21 05:12 Albumin/Globulin Ratio 1.4 % 01/28/21 05:12 Triglycerides 131 mg/dL (2-149) 01/28/21 05:12 Cholesterol 182 mg/dL (50-199) 01/28/21 05:12 LDL Cholesterol Direct 117 mg/dL (50-130) 01/28/21 05:12 HDL Cholesterol 49 mg/dL (40-59) 01/28/21 05:12 Cholesterol/HDL Ratio 3.71 % 01/28/21 05:12 TSH 1.960 mlU/mL (0.270-4.200) 01/28/21 05:12 Hepatitis A IgM Ab Non-reactive (NonReactive) 01/28/21 05:12 Hep Bs Antigen Nonreactive (Negative) 01/28/21 05:12 Hep B Core IgM Ab Non-reactive (NonReactive) 01/28/21 05:12 Hepatitis C Antibody Non-reactive (NonReactive) 01/28/21 05:12 Last Vital Signs Temp 97.7 F 02/01/21 07:46 Pulse 67 02/01/21 20:00 Resp 16 02/01/21 07:46 BP 120/71 02/01/21 07:46 Pulse Ox 97 02/01/21 20:00
[2021-02-02] MEDS: ASPIRIN EC 81 MG TAB PO SCH (11:41)
[2021-02-02] MEDS: SERTRALINE 50 MG TAB PO SCH (11:42)
[2021-02-02] MEDS: APIXABAN 5 MG TAB PO SCH ×2 (11:42→21:02)
[2021-02-02] MEDS: busPIRone 10 MG TAB PO SCH ×3 (11:42→21:02)
[2021-02-02] MEDS: hydrOXYzine PAMOATE 25 MG CAP PO SCH ×2 (11:42→21:02)
[2021-02-02] MEDS: MIRTAZAPINE 15 MG TAB PO SCH (21:02)
--- NOTE | 2021-02-03 10:13 | Progress Note ---
Subjective Date of service: 02/03/21 Principal diagnosis: MDD Subjective Comment: The patient was seen today. The patient is much better. He denies SI/HI or hallucinations of any kind. He says he's been praying and taking his meds. Reason for continued inpatient treatment: The patient appears to be improving, but he has episodes of paranoia and high anxiety REVIEW OF SYSTEMS Constitutional: Negative for weight loss ENT: Negative for stridor Respiratory: Negative for cough or hemoptysis All other systems reviewed and are negative MENTAL STATUS EXAMINATION General Appearance and Behavior: Age appropriate, fair hygiene, wearing appropriate clothes, good eye contact, cooperative polite with questioning. Cooperation: Participating/engaged Psychomotor Behavior: unremarkable and within normal limits Mood: anxious Affect and affective range: congruent with mood Thought Process: Fluent/Logical Thought Content: depression Speech: Normal volume, Regular rate and rhythm Intellectual Functioning: Average Suicidal Ideation: Denies Homicidal Ideation: Denies Hallucinations:Denies Impulse Control: Unimpaired Insight and Judgment: Limited insight and fair judgment Memory: Normal Attention: Normal, Orientation: Alert, oriented Assessment (1) Major depressive disorder, recurrent, severe-F33.2 (2) Generalized Anxiety Disorder Current Visit: Yes Status: Acute Treatment Plan Patient admitted for inpatient psychiatric evaluation, medication adjustment and close monitoring The patient's behavior, mood, sleep and appetite will be closely monitored. Patient enrolled in individual and group therapeutic sessions and encouraged to attend. Patient provided with a safe and structured environment. Patient's physical health needs will be addressed by the Hospitalist. Hospitalist Consulted Labs including CBC, CMP, Lipid profile and Hemoglobin A1C levels ordered for baseline reference Social Assessment will be completed and the Telephone Solicitor will work with patient and family to ensure a suitable and safe disposition Medication adjustment will be made as clinically indicated Continue Zoloft 50mg po daily yesterday Continue Olanzapine 15mg po daily Continue Buspar 10mg po TID Changed Vistaril to scheduled yesterday Usual Wellness Temple/Preservation: - Start Trazodone 50 mg po QHS & 50 mg po QHS PRN between 10 PM & 2 AM for insomnia - Start Melatonin 5 mg po QHS to promote circadian rhythm The patient agreed on the treatment plan, understood the risk, benefit, alternative treatment, potential consequence of no treatment, and gave informed consent. Estimated days: 3 Post hospital care: primary care provider, psychiatric provider Case staffed with Dr. Collier Medications and Allergies Allergies Allergy/AdvReac Type Severity Reaction Status Date / Time Hornets Allergy Hives Uncoded 01/26/21 19:42 Home Medications Medication Instructions Recorded Confirmed Last Taken Type Aspirin EC [Halfprin EC] 81 mg PO QDAY #30 tablet. 04/05/20 01/28/21 Unknown Rx Mirtazapine [Remeron 15mg TAB] 15 mg PO QHS #14 tablet 04/05/20 01/28/21 Unknown Rx OLANzapine [ZyPREXA] 10 mg PO QHS #14 tablet 04/05/20 01/28/21 Unknown Rx Apixaban [Eliquis] 5 mg PO BID 01/27/21 01/28/21 Unknown History Active Meds: Active Medications Acetaminophen (Acetaminophen 325 Mg Tab) 650 mg PO Q6H PRN PRN Reason: Pain, Mild (1-3) Apixaban (Apixaban 5 Mg Tab) 5 mg PO BID [facility] Last Admin: 02/02/21 21:02 Dose: 5 mg Documented by: Aspirin (Aspirin Ec 81 Mg Tab) 81 mg PO QDAY [facility] Last Admin: 02/02/21 11:41 Dose: 81 mg Documented by: Buspirone HCl (Buspirone 10 Mg Tab) 10 mg PO TID [facility] Last Admin: 02/02/21 21:02 Dose: 10 mg Documented by: Hydroxyzine Pamoate (Hydroxyzine Pamoate 25 Mg Cap) 25 mg PO BID [facility] Last Admin: 02/02/21 21:02 Dose: 25 mg Documented by: Lorazepam (Lorazepam 2 Mg/Ml Vial) 2 mg IV Q4H PRN PRN Reason: Agitation Mirtazapine (Mirtazapine 15 Mg Tab) 15 mg PO QHS [facility] Last Admin: 02/02/21 21:02 Dose: 15 mg Documented by: Olanzapine (Olanzapine 7.5 Mg Tab) 15 mg PO QDAY [facility] Last Admin: 02/02/21 11:41 Dose: 15 mg Documented by: Sertraline HCl (Sertraline 50 Mg Tab) 50 mg PO QDAY [facility] Last Admin: 02/02/21 11:42 Dose: 50 mg Documented by: Results - Results Labs/Vitals: Laboratory Last Values WBC 3.9 K/mm3 (4.5-11.0) L 01/28/21 05:12 RBC 4.40 M/mm3 (3.65-5.03) 01/28/21 05:12 Hgb 14.4 gm/dl (11.8-15.2) 01/28/21 05:12 Hct 41.8 % (35.5-45.6) 01/28/21 05:12 MCV 95 fl (84-94) H 01/28/21 05:12 MCH 33 pg (28-32) H 01/28/21 05:12 MCHC 34 % (32-34) 01/28/21 05:12 RDW 14.1 % (13.2-15.2) 01/28/21 05:12 Plt Count 154 K/mm3 (140-440) 01/28/21 05:12 Lymph % (Auto) 30.7 % (13.4-35.0) 01/28/21 05:12 [place] % (Auto) 12.5 % (0.0-7.3) H 01/28/21 05:12 Eos % (Auto) 2.9 % (0.0-4.3) 01/28/21 05:12 Baso % (Auto) 1.0 % (0.0-1.8) 01/28/21 05:12 Lymph # (Auto) 1.2 K/mm3 (1.2-5.4) 01/28/21 05:12 [place] # (Auto) 0.5 K/mm3 (0.0-0.8) 01/28/21 05:12 Eos # (Auto) 0.1 K/mm3 (0.0-0.4) 01/28/21 05:12 Baso # (Auto) 0.0 K/mm3 (0.0-0.1) 01/28/21 05:12 Seg Neutrophils % 52.9 % (40.0-70.0) 01/28/21 05:12 Seg Neutrophils # 2.1 K/mm3 (1.8-7.7) 01/28/21 05:12 Sodium 140 mmol/L (137-145) 01/28/21 05:12 Potassium 3.8 mmol/L (3.6-5.0) 01/28/21 05:12 Chloride 106.9 mmol/L (98-107) 01/28/21 05:12 Carbon Dioxide 21 mmol/L (22-30) L 01/28/21 05:12 Anion Gap 16 mmol/L 01/28/21 05:12 BUN 23 mg/dL (9-20) H 01/28/21 05:12 Creatinine 0.7 mg/dL (0.8-1.3) L 01/28/21 05:12 Estimated GFR > 60 ml/min 01/28/21 05:12 BUN/Creatinine Ratio 33 % 01/28/21 05:12 Glucose 82 mg/dL (75-100) 01/28/21 05:12 POC Glucose 130 mg/dL (70-105) H 01/28/21 03:51 Calcium 9.1 mg/dL (8.4-10.2) 01/28/21 05:12 Total Bilirubin 0.70 mg/dL (0.1-1.2) 01/28/21 05:12 AST 16 units/L (5-40) 01/28/21 05:12 ALT 13 units/L (7-56) 01/28/21 05:12 Alkaline Phosphatase 102 units/L (35-129) 01/28/21 05:12 Total Protein 7.1 g/dL (6.3-8.2) 01/28/21 05:12 Albumin 4.1 g/dL (3.9-5) 01/28/21 05:12 Albumin/Globulin Ratio 1.4 % 01/28/21 05:12 Triglycerides 131 mg/dL (2-149) 01/28/21 05:12 Cholesterol 182 mg/dL (50-199) 01/28/21 05:12 LDL Cholesterol Direct 117 mg/dL (50-130) 01/28/21 05:12 HDL Cholesterol 49 mg/dL (40-59) 01/28/21 05:12 Cholesterol/HDL Ratio 3.71 % 01/28/21 05:12 TSH 1.960 mlU/mL (0.270-4.200) 01/28/21 05:12 Hepatitis A IgM Ab Non-reactive (NonReactive) 01/28/21 05:12 Hep Bs Antigen Nonreactive (Negative) 01/28/21 05:12 Hep B Core IgM Ab Non-reactive (NonReactive) 01/28/21 05:12 Hepatitis C Antibody Non-reactive (NonReactive) 01/28/21 05:12 Last Vital Signs Temp 98.5 F 02/02/21 19:53 Pulse 71 02/02/21 19:53 Resp 16 02/02/21 19:53 BP 123/95 02/02/21 19:53 Pulse Ox 94 02/02/21 19:53
[2021-02-03] MEDS: ASPIRIN EC 81 MG TAB PO SCH (10:26)
[2021-02-03] MEDS: SERTRALINE 50 MG TAB PO SCH (10:26)
[2021-02-03] MEDS: APIXABAN 5 MG TAB PO SCH ×2 (10:27→21:50)
[2021-02-03] MEDS: hydrOXYzine PAMOATE 25 MG CAP PO SCH ×2 (10:27→21:50)
[2021-02-03] MEDS: busPIRone 10 MG TAB PO SCH ×3 (10:27→19:45)
--- NOTE | 2021-02-03 14:04 | Progress Note ---
Assessment and Plan - Patient Problems (1) Bipolar disorder, current episode hypomanic Current Visit: No Status: Acute Plan to address problem: Continue medical management, continue inpatient psychiatric therapy. (2) Hypertension Current Visit: Yes Status: Acute Qualifiers: Hypertension type: primary hypertension Qualified Code(s): I10 - Essential (primary) hypertension Plan to address problem: Monitor blood pressure every shift, continue medical management (3) Schizophrenia Current Visit: Yes Status: Acute Plan to address problem: Continue current therapy, (4) Paroxysmal A-fib Current Visit: Yes Status: Acute Plan to address problem: Continue therapeutic anticoagulation with Eliquis History Interval history: 60 YO Male with Paroxysmal Atrial Fib S/P IVC Filter, DVT on therapeutic anticoagulation with Eliquis, Bipolar Disorder, Schizophrenia, HTN admitted to [facility] for psychiatric stabilization. No reported nursing events. Patient denies pain. Hospitalist Physical - Constitutional Vitals: Temp Pulse Resp BP Pulse Ox 98.3 F 71 18 141/78 94 02/03/21 08:29 02/02/21 19:53 02/03/21 08:29 02/03/21 08:29 02/02/21 19:53 General appearance: Present: no acute distress - EENT Eyes: Present: PERRL, EOM intact ENT: hearing intact - Neck Neck: Present: supple - Respiratory Respiratory: bilateral: CTA - Cardiovascular Rhythm: irregularly irregular - Extremities Extremities: no ischemia, pulses intact Peripheral Pulses: within normal limits - Abdominal General gastrointestinal: soft, non-tender, non-distended - Integumentary Integumentary: Present: clear, dry - Psychiatric Psychiatric: cooperative - Neurologic Neurologic: CNII-XII intact Results - Labs CBC & Chem 7: 01/28/21 05:12 01/28/21 05:12 Labs: Laboratory Last Values WBC 3.9 K/mm3 (4.5-11.0) L 01/28/21 05:12 RBC 4.40 M/mm3 (3.65-5.03) 01/28/21 05:12 Hgb 14.4 gm/dl (11.8-15.2) 01/28/21 05:12 Hct 41.8 % (35.5-45.6) 01/28/21 05:12 MCV 95 fl (84-94) H 01/28/21 05:12 MCH 33 pg (28-32) H 01/28/21 05:12 MCHC 34 % (32-34) 01/28/21 05:12 RDW 14.1 % (13.2-15.2) 01/28/21 05:12 Plt Count 154 K/mm3 (140-440) 01/28/21 05:12 Lymph % (Auto) 30.7 % (13.4-35.0) 01/28/21 05:12 [place] % (Auto) 12.5 % (0.0-7.3) H 01/28/21 05:12 Eos % (Auto) 2.9 % (0.0-4.3) 01/28/21 05:12 Baso % (Auto) 1.0 % (0.0-1.8) 01/28/21 05:12 Lymph # (Auto) 1.2 K/mm3 (1.2-5.4) 01/28/21 05:12 [place] # (Auto) 0.5 K/mm3 (0.0-0.8) 01/28/21 05:12 Eos # (Auto) 0.1 K/mm3 (0.0-0.4) 01/28/21 05:12 Baso # (Auto) 0.0 K/mm3 (0.0-0.1) 01/28/21 05:12 Seg Neutrophils % 52.9 % (40.0-70.0) 01/28/21 05:12 Seg Neutrophils # 2.1 K/mm3 (1.8-7.7) 01/28/21 05:12 Sodium 140 mmol/L (137-145) 01/28/21 05:12 Potassium 3.8 mmol/L (3.6-5.0) 01/28/21 05:12 Chloride 106.9 mmol/L (98-107) 01/28/21 05:12 Carbon Dioxide 21 mmol/L (22-30) L 01/28/21 05:12 Anion Gap 16 mmol/L 01/28/21 05:12 BUN 23 mg/dL (9-20) H 01/28/21 05:12 Creatinine 0.7 mg/dL (0.8-1.3) L 01/28/21 05:12 Estimated GFR > 60 ml/min 01/28/21 05:12 BUN/Creatinine Ratio 33 % 01/28/21 05:12 Glucose 82 mg/dL (75-100) 01/28/21 05:12 POC Glucose 130 mg/dL (70-105) H 01/28/21 03:51 Calcium 9.1 mg/dL (8.4-10.2) 01/28/21 05:12 Total Bilirubin 0.70 mg/dL (0.1-1.2) 01/28/21 05:12 AST 16 units/L (5-40) 01/28/21 05:12 ALT 13 units/L (7-56) 01/28/21 05:12 Alkaline Phosphatase 102 units/L (35-129) 01/28/21 05:12 Total Protein 7.1 g/dL (6.3-8.2) 01/28/21 05:12 Albumin 4.1 g/dL (3.9-5) 01/28/21 05:12 Albumin/Globulin Ratio 1.4 % 01/28/21 05:12 Triglycerides 131 mg/dL (2-149) 01/28/21 05:12 Cholesterol 182 mg/dL (50-199) 01/28/21 05:12 LDL Cholesterol Direct 117 mg/dL (50-130) 01/28/21 05:12 HDL Cholesterol 49 mg/dL (40-59) 01/28/21 05:12 Cholesterol/HDL Ratio 3.71 % 01/28/21 05:12 TSH 1.960 mlU/mL (0.270-4.200) 01/28/21 05:12 Hepatitis A IgM Ab Non-reactive (NonReactive) 01/28/21 05:12 Hep Bs Antigen Nonreactive (Negative) 01/28/21 05:12 Hep B Core IgM Ab Non-reactive (NonReactive) 01/28/21 05:12 Hepatitis C Antibody Non-reactive (NonReactive) 01/28/21 05:12 Reyes/IV: Voiding Method Toilet Active Medications - Current Medications Current Medications: Generic Name Dose Route Start Last Admin Trade Name Freq PRN Reason Stop Dose Admin Acetaminophen 650 mg 01/28/21 22:06 Acetaminophen 325 Mg Tab PO Q6H PRN Pain, Mild (1-3) Apixaban 5 mg 01/28/21 10:00 02/03/21 10:27 Apixaban 5 Mg Tab PO 5 mg BID [facility] Administration Aspirin 81 mg 01/28/21 10:00 02/03/21 10:26 Aspirin Ec 81 Mg Tab PO 81 mg QDAY [facility] Administration Buspirone HCl 10 mg 02/01/21 14:00 02/03/21 10:27 Buspirone 10 Mg Tab PO 10 mg TID [facility] Administration Hydroxyzine Pamoate 25 mg 02/01/21 22:00 02/03/21 10:27 Hydroxyzine Pamoate 25 Mg Cap PO 25 mg BID [facility] Administration Lorazepam 2 mg 01/29/21 09:00 Lorazepam 2 Mg/Ml Vial IV Q4H PRN Agitation Mirtazapine 15 mg 01/27/21 22:00 02/02/21 21:02 Mirtazapine 15 Mg Tab PO 15 mg QHS [facility] Administration Olanzapine 15 mg 02/01/21 10:00 02/03/21 10:26 Olanzapine 7.5 Mg Tab PO 15 mg QDAY [facility] Administration Sertraline HCl 50 mg 02/02/21 10:00 02/03/21 10:26 Sertraline 50 Mg Tab PO 50 mg QDAY [facility] Administration
[2021-02-03] MEDS: MIRTAZAPINE 15 MG TAB PO SCH (21:50)
--- NOTE | 2021-02-04 10:49 | Progress Note ---
Subjective Date of service: 02/04/21 Principal diagnosis: MDD Subjective Comment: The patient was seen today. He is a little anxious, but states he's feeling better than before. He denies SI/HI or hallucinations of any kind. The staff states he has been withdrawn and in his room a lot. Reason for continued inpatient treatment: The patient appears to be improving, but he has episodes of paranoia and high anxiety REVIEW OF SYSTEMS Constitutional: Negative for weight loss ENT: Negative for stridor Respiratory: Negative for cough or hemoptysis All other systems reviewed and are negative MENTAL STATUS EXAMINATION General Appearance and Behavior: Age appropriate, fair hygiene, wearing appropriate clothes, good eye contact, cooperative polite with questioning. Cooperation: Participating/engaged Psychomotor Behavior: unremarkable and within normal limits Mood: anxious Affect and affective range: congruent with mood Thought Process: Fluent/Logical Thought Content: depression Speech: Normal volume, Regular rate and rhythm Intellectual Functioning: Average Suicidal Ideation: Denies Homicidal Ideation: Denies Hallucinations:Denies Impulse Control: Unimpaired Insight and Judgment: Limited insight and fair judgment Memory: Normal Attention: Normal, Orientation: Alert, oriented Assessment (1) Major depressive disorder, recurrent, severe-F33.2 (2) Generalized Anxiety Disorder Current Visit: Yes Status: Acute Treatment Plan Patient admitted for inpatient psychiatric evaluation, medication adjustment and close monitoring The patient's behavior, mood, sleep and appetite will be closely monitored. Patient enrolled in individual and group therapeutic sessions and encouraged to attend. Patient provided with a safe and structured environment. Patient's physical health needs will be addressed by the Hospitalist. Hospitalist Consulted Labs including CBC, CMP, Lipid profile and Hemoglobin A1C levels ordered for baseline reference Social Assessment will be completed and the Gis Web Developer will work with patient and family to ensure a suitable and safe disposition Medication adjustment will be made as clinically indicated Continue Zoloft 50mg po daily yesterday Continue Olanzapine 15mg po daily Continue Buspar 10mg po TID Changed Vistaril to scheduled yesterday Usual Wellness Scientologist/Preservation: - Start Trazodone 50 mg po QHS & 50 mg po QHS PRN between 10 PM & 2 AM for insomnia - Start Melatonin 5 mg po QHS to promote circadian rhythm The patient agreed on the treatment plan, understood the risk, benefit, alternative treatment, potential consequence of no treatment, and gave informed consent. Estimated days: 3 Post hospital care: primary care provider, psychiatric provider Case staffed with Dr. Collier Medications and Allergies Allergies Allergy/AdvReac Type Severity Reaction Status Date / Time Hornets Allergy Hives Uncoded 01/26/21 19:42 Home Medications Medication Instructions Recorded Confirmed Last Taken Type Aspirin EC [Halfprin EC] 81 mg PO QDAY #30 tablet. 04/05/20 01/28/21 Unknown Rx Mirtazapine [Remeron 15mg TAB] 15 mg PO QHS #14 tablet 04/05/20 01/28/21 Unknown Rx OLANzapine [ZyPREXA] 10 mg PO QHS #14 tablet 04/05/20 01/28/21 Unknown Rx Apixaban [Eliquis] 5 mg PO BID 01/27/21 01/28/21 Unknown History Active Meds: Active Medications Acetaminophen (Acetaminophen 325 Mg Tab) 650 mg PO Q6H PRN PRN Reason: Pain, Mild (1-3) Apixaban (Apixaban 5 Mg Tab) 5 mg PO BID [facility] Last Admin: 02/03/21 21:50 Dose: 5 mg Documented by: Aspirin (Aspirin Ec 81 Mg Tab) 81 mg PO QDAY [facility] Last Admin: 02/03/21 10:26 Dose: 81 mg Documented by: Buspirone HCl (Buspirone 10 Mg Tab) 10 mg PO TID [facility] Last Admin: 02/03/21 19:45 Dose: 10 mg Documented by: Hydroxyzine Pamoate (Hydroxyzine Pamoate 25 Mg Cap) 25 mg PO BID [facility] Last Admin: 02/03/21 21:50 Dose: 25 mg Documented by: Lorazepam (Lorazepam 2 Mg/Ml Vial) 2 mg IV Q4H PRN PRN Reason: Agitation Mirtazapine (Mirtazapine 15 Mg Tab) 15 mg PO QHS [facility] Last Admin: 02/03/21 21:50 Dose: 15 mg Documented by: Olanzapine (Olanzapine 7.5 Mg Tab) 15 mg PO QDAY [facility] Last Admin: 02/03/21 10:26 Dose: 15 mg Documented by: Sertraline HCl (Sertraline 50 Mg Tab) 50 mg PO QDAY [facility] Last Admin: 02/03/21 10:26 Dose: 50 mg Documented by: Results - Results Labs/Vitals: Laboratory Last Values WBC 3.9 K/mm3 (4.5-11.0) L 01/28/21 05:12 RBC 4.40 M/mm3 (3.65-5.03) 01/28/21 05:12 Hgb 14.4 gm/dl (11.8-15.2) 01/28/21 05:12 Hct 41.8 % (35.5-45.6) 01/28/21 05:12 MCV 95 fl (84-94) H 01/28/21 05:12 MCH 33 pg (28-32) H 01/28/21 05:12 MCHC 34 % (32-34) 01/28/21 05:12 RDW 14.1 % (13.2-15.2) 01/28/21 05:12 Plt Count 154 K/mm3 (140-440) 01/28/21 05:12 Lymph % (Auto) 30.7 % (13.4-35.0) 01/28/21 05:12 [place] % (Auto) 12.5 % (0.0-7.3) H 01/28/21 05:12 Eos % (Auto) 2.9 % (0.0-4.3) 01/28/21 05:12 Baso % (Auto) 1.0 % (0.0-1.8) 01/28/21 05:12 Lymph # (Auto) 1.2 K/mm3 (1.2-5.4) 01/28/21 05:12 [place] # (Auto) 0.5 K/mm3 (0.0-0.8) 01/28/21 05:12 Eos # (Auto) 0.1 K/mm3 (0.0-0.4) 01/28/21 05:12 Baso # (Auto) 0.0 K/mm3 (0.0-0.1) 01/28/21 05:12 Seg Neutrophils % 52.9 % (40.0-70.0) 01/28/21 05:12 Seg Neutrophils # 2.1 K/mm3 (1.8-7.7) 01/28/21 05:12 Sodium 140 mmol/L (137-145) 01/28/21 05:12 Potassium 3.8 mmol/L (3.6-5.0) 01/28/21 05:12 Chloride 106.9 mmol/L (98-107) 01/28/21 05:12 Carbon Dioxide 21 mmol/L (22-30) L 01/28/21 05:12 Anion Gap 16 mmol/L 01/28/21 05:12 BUN 23 mg/dL (9-20) H 01/28/21 05:12 Creatinine 0.7 mg/dL (0.8-1.3) L 01/28/21 05:12 Estimated GFR > 60 ml/min 01/28/21 05:12 BUN/Creatinine Ratio 33 % 01/28/21 05:12 Glucose 82 mg/dL (75-100) 01/28/21 05:12 POC Glucose 130 mg/dL (70-105) H 01/28/21 03:51 Calcium 9.1 mg/dL (8.4-10.2) 01/28/21 05:12 Total Bilirubin 0.70 mg/dL (0.1-1.2) 01/28/21 05:12 AST 16 units/L (5-40) 01/28/21 05:12 ALT 13 units/L (7-56) 01/28/21 05:12 Alkaline Phosphatase 102 units/L (35-129) 01/28/21 05:12 Total Protein 7.1 g/dL (6.3-8.2) 01/28/21 05:12 Albumin 4.1 g/dL (3.9-5) 01/28/21 05:12 Albumin/Globulin Ratio 1.4 % 01/28/21 05:12 Triglycerides 131 mg/dL (2-149) 01/28/21 05:12 Cholesterol 182 mg/dL (50-199) 01/28/21 05:12 LDL Cholesterol Direct 117 mg/dL (50-130) 01/28/21 05:12 HDL Cholesterol 49 mg/dL (40-59) 01/28/21 05:12 Cholesterol/HDL Ratio 3.71 % 01/28/21 05:12 TSH 1.960 mlU/mL (0.270-4.200) 01/28/21 05:12 Hepatitis A IgM Ab Non-reactive (NonReactive) 01/28/21 05:12 Hep Bs Antigen Nonreactive (Negative) 01/28/21 05:12 Hep B Core IgM Ab Non-reactive (NonReactive) 01/28/21 05:12 Hepatitis C Antibody Non-reactive (NonReactive) 01/28/21 05:12 Last Vital Signs Temp 98.3 F 02/03/21 08:29 Pulse 71 02/02/21 19:53 Resp 18 02/03/21 08:29 BP 141/78 02/03/21 08:29 Pulse Ox 94 02/02/21 19:53
[2021-02-04] MEDS: APIXABAN 5 MG TAB PO SCH ×2 (10:57→21:51)
[2021-02-04] MEDS: ASPIRIN EC 81 MG TAB PO SCH (10:57)
[2021-02-04] MEDS: busPIRone 10 MG TAB PO SCH ×3 (10:57→21:51)
[2021-02-04] MEDS: SERTRALINE 50 MG TAB PO SCH (10:57)
[2021-02-04] MEDS: hydrOXYzine PAMOATE 25 MG CAP PO SCH ×2 (10:57→21:51)
[2021-02-04] MEDS: MIRTAZAPINE 15 MG TAB PO SCH (21:51)
--- NOTE | 2021-02-05 09:22 | Progress Note ---
Subjective Date of service: 02/05/21 Principal diagnosis: MDD Subjective Comment: The patient was seen today. He is calm and cooperative. He denies SI/HI or hallucinations of any kind. He says being here is bad for him. The patient can be discharged as soon as the SW does her end of his outpatient set-up to ensue the patient's safety upon discharge. Reason for continued inpatient treatment: The has improved significantly and is clear from psych standpoint. REVIEW OF SYSTEMS Constitutional: Negative for weight loss ENT: Negative for stridor Respiratory: Negative for cough or hemoptysis All other systems reviewed and are negative MENTAL STATUS EXAMINATION General Appearance and Behavior: Age appropriate, fair hygiene, wearing appropriate clothes, good eye contact, cooperative polite with questioning. Cooperation: Participating/engaged Psychomotor Behavior: unremarkable and within normal limits Mood: anxious Affect and affective range: congruent with mood Thought Process: Fluent/Logical Thought Content: depression Speech: Normal volume, Regular rate and rhythm Intellectual Functioning: Average Suicidal Ideation: Denies Homicidal Ideation: Denies Hallucinations:Denies Impulse Control: Unimpaired Insight and Judgment: Limited insight and fair judgment Memory: Normal Attention: Normal, Orientation: Alert, oriented Assessment (1) Major depressive disorder, recurrent, severe-F33.2 (2) Generalized Anxiety Disorder Current Visit: Yes Status: Acute Treatment Plan Patient admitted for inpatient psychiatric evaluation, medication adjustment and close monitoring The patient's behavior, mood, sleep and appetite will be closely monitored. Patient enrolled in individual and group therapeutic sessions and encouraged to attend. Patient provided with a safe and structured environment. Patient's physical health needs will be addressed by the Hospitalist. Hospitalist Consulted Labs including CBC, CMP, Lipid profile and Hemoglobin A1C levels ordered for baseline reference Social Assessment will be completed and the Type Photography Supervisor will work with patient and family to ensure a suitable and safe disposition Medication adjustment will be made as clinically indicated Continue Zoloft 50mg po daily Continue Olanzapine 15mg po daily Continue Buspar 10mg po TID Changed Vistaril to scheduled Usual Wellness Christianity/Preservation: - Start Trazodone 50 mg po QHS & 50 mg po QHS PRN between 10 PM & 2 AM for insomnia - Start Melatonin 5 mg po QHS to promote circadian rhythm The patient agreed on the treatment plan, understood the risk, benefit, alternative treatment, potential consequence of no treatment, and gave informed consent. Estimated days: 3 Post hospital care: primary care provider, psychiatric provider Case staffed with Dr. Collier Medications and Allergies Allergies Allergy/AdvReac Type Severity Reaction Status Date / Time Hornets Allergy Hives Uncoded 01/26/21 19:42 Home Medications Medication Instructions Recorded Confirmed Last Taken Type Aspirin EC [Halfprin EC] 81 mg PO QDAY #30 tablet. 04/05/20 01/28/21 Unknown Rx Mirtazapine [Remeron 15mg TAB] 15 mg PO QHS #14 tablet 04/05/20 01/28/21 Unknown Rx OLANzapine [ZyPREXA] 10 mg PO QHS #14 tablet 04/05/20 01/28/21 Unknown Rx Apixaban [Eliquis] 5 mg PO BID 01/27/21 01/28/21 Unknown History Active Meds: Active Medications Acetaminophen (Acetaminophen 325 Mg Tab) 650 mg PO Q6H PRN PRN Reason: Pain, Mild (1-3) Apixaban (Apixaban 5 Mg Tab) 5 mg PO BID [facility] Last Admin: 02/04/21 21:51 Dose: 5 mg Documented by: Aspirin (Aspirin Ec 81 Mg Tab) 81 mg PO QDAY [facility] Last Admin: 02/04/21 10:57 Dose: 81 mg Documented by: Buspirone HCl (Buspirone 10 Mg Tab) 10 mg PO TID [facility] Last Admin: 02/04/21 21:51 Dose: 10 mg Documented by: Hydroxyzine Pamoate (Hydroxyzine Pamoate 25 Mg Cap) 25 mg PO BID [facility] Last Admin: 02/04/21 21:51 Dose: 25 mg Documented by: Lorazepam (Lorazepam 2 Mg/Ml Vial) 2 mg IV Q4H PRN PRN Reason: Agitation Mirtazapine (Mirtazapine 15 Mg Tab) 15 mg PO QHS [facility] Last Admin: 02/04/21 21:51 Dose: 15 mg Documented by: Olanzapine (Olanzapine 7.5 Mg Tab) 15 mg PO QDAY [facility] Last Admin: 02/04/21 13:58 Dose: 15 mg Documented by: Sertraline HCl (Sertraline 50 Mg Tab) 50 mg PO QDAY [facility] Last Admin: 02/04/21 10:57 Dose: 50 mg Documented by: Results - Results Labs/Vitals: Laboratory Last Values WBC 3.9 K/mm3 (4.5-11.0) L 01/28/21 05:12 RBC 4.40 M/mm3 (3.65-5.03) 01/28/21 05:12 Hgb 14.4 gm/dl (11.8-15.2) 01/28/21 05:12 Hct 41.8 % (35.5-45.6) 01/28/21 05:12 MCV 95 fl (84-94) H 01/28/21 05:12 MCH 33 pg (28-32) H 01/28/21 05:12 MCHC 34 % (32-34) 01/28/21 05:12 RDW 14.1 % (13.2-15.2) 01/28/21 05:12 Plt Count 154 K/mm3 (140-440) 01/28/21 05:12 Lymph % (Auto) 30.7 % (13.4-35.0) 01/28/21 05:12 [place] % (Auto) 12.5 % (0.0-7.3) H 01/28/21 05:12 Eos % (Auto) 2.9 % (0.0-4.3) 01/28/21 05:12 Baso % (Auto) 1.0 % (0.0-1.8) 01/28/21 05:12 Lymph # (Auto) 1.2 K/mm3 (1.2-5.4) 01/28/21 05:12 [place] # (Auto) 0.5 K/mm3 (0.0-0.8) 01/28/21 05:12 Eos # (Auto) 0.1 K/mm3 (0.0-0.4) 01/28/21 05:12 Baso # (Auto) 0.0 K/mm3 (0.0-0.1) 01/28/21 05:12 Seg Neutrophils % 52.9 % (40.0-70.0) 01/28/21 05:12 Seg Neutrophils # 2.1 K/mm3 (1.8-7.7) 01/28/21 05:12 Sodium 140 mmol/L (137-145) 01/28/21 05:12 Potassium 3.8 mmol/L (3.6-5.0) 01/28/21 05:12 Chloride 106.9 mmol/L (98-107) 01/28/21 05:12 Carbon Dioxide 21 mmol/L (22-30) L 01/28/21 05:12 Anion Gap 16 mmol/L 01/28/21 05:12 BUN 23 mg/dL (9-20) H 01/28/21 05:12 Creatinine 0.7 mg/dL (0.8-1.3) L 01/28/21 05:12 Estimated GFR > 60 ml/min 01/28/21 05:12 BUN/Creatinine Ratio 33 % 01/28/21 05:12 Glucose 82 mg/dL (75-100) 01/28/21 05:12 POC Glucose 130 mg/dL (70-105) H 01/28/21 03:51 Calcium 9.1 mg/dL (8.4-10.2) 01/28/21 05:12 Total Bilirubin 0.70 mg/dL (0.1-1.2) 01/28/21 05:12 AST 16 units/L (5-40) 01/28/21 05:12 ALT 13 units/L (7-56) 01/28/21 05:12 Alkaline Phosphatase 102 units/L (35-129) 01/28/21 05:12 Total Protein 7.1 g/dL (6.3-8.2) 01/28/21 05:12 Albumin 4.1 g/dL (3.9-5) 01/28/21 05:12 Albumin/Globulin Ratio 1.4 % 01/28/21 05:12 Triglycerides 131 mg/dL (2-149) 01/28/21 05:12 Cholesterol 182 mg/dL (50-199) 01/28/21 05:12 LDL Cholesterol Direct 117 mg/dL (50-130) 01/28/21 05:12 HDL Cholesterol 49 mg/dL (40-59) 01/28/21 05:12 Cholesterol/HDL Ratio 3.71 % 01/28/21 05:12 TSH 1.960 mlU/mL (0.270-4.200) 01/28/21 05:12 Hepatitis A IgM Ab Non-reactive (NonReactive) 01/28/21 05:12 Hep Bs Antigen Nonreactive (Negative) 01/28/21 05:12 Hep B Core IgM Ab Non-reactive (NonReactive) 01/28/21 05:12 Hepatitis C Antibody Non-reactive (NonReactive) 01/28/21 05:12 Last Vital Signs Temp 98.1 F 02/04/21 21:25 Pulse 87 02/04/21 21:25 Resp 16 02/04/21 21:25 BP 103/64 02/04/21 21:25 Pulse Ox 96 02/04/21 21:25
[2021-02-05] MEDS: SERTRALINE 50 MG TAB PO SCH (11:01)
[2021-02-05] MEDS: APIXABAN 5 MG TAB PO SCH ×2 (11:02→22:27)
[2021-02-05] MEDS: hydrOXYzine PAMOATE 25 MG CAP PO SCH ×2 (11:02→22:28)
[2021-02-05] MEDS: busPIRone 10 MG TAB PO SCH ×3 (11:02→22:27)
[2021-02-05] MEDS: ASPIRIN EC 81 MG TAB PO SCH (11:02)
--- NOTE | 2021-02-05 18:34 | Progress Note ---
Assessment and Plan - Patient Problems (1) Bipolar disorder, current episode hypomanic Current Visit: No Status: Acute Plan to address problem: Continue medical management, continue inpatient psychiatric therapy. (2) Hypertension Current Visit: Yes Status: Acute Qualifiers: Hypertension type: primary hypertension Qualified Code(s): I10 - Essential (primary) hypertension Plan to address problem: Monitor blood pressure every shift, continue medical management (3) Schizophrenia Current Visit: Yes Status: Acute Plan to address problem: Continue current therapy, (4) Paroxysmal A-fib Current Visit: Yes Status: Acute Plan to address problem: Continue therapeutic anticoagulation with Eliquis History Interval history: 60 YO Male with Paroxysmal Atrial Fib S/P IVC Filter, DVT on therapeutic anticoagulation with Eliquis, Bipolar Disorder, Schizophrenia, HTN admitted to [facility] psych unit for psychiatric stabilization. No reported nursing events. Patient denies pain. Hospitalist Physical - Constitutional Vitals: Temp Pulse Resp BP Pulse Ox 98.1 F 87 16 103/64 96 02/04/21 21:25 02/04/21 21:25 02/04/21 21:25 02/04/21 21:25 02/04/21 21:25 General appearance: Present: no acute distress - EENT Eyes: Present: PERRL ENT: hearing decreased - Neck Neck: Present: supple - Respiratory Respiratory effort: normal Respiratory: bilateral: CTA - Cardiovascular Rhythm: regular Heart Sounds: Present: S1 & S2 - Extremities Extremities: no ischemia Peripheral Pulses: within normal limits - Abdominal General gastrointestinal: soft, non-tender, non-distended - Integumentary Integumentary: Present: clear, dry - Psychiatric Psychiatric: cooperative - Neurologic Neurologic: CNII-XII intact Results - Labs CBC & Chem 7: 01/28/21 05:12 01/28/21 05:12 Labs: Laboratory Last Values WBC 3.9 K/mm3 (4.5-11.0) L 01/28/21 05:12 RBC 4.40 M/mm3 (3.65-5.03) 01/28/21 05:12 Hgb 14.4 gm/dl (11.8-15.2) 01/28/21 05:12 Hct 41.8 % (35.5-45.6) 01/28/21 05:12 MCV 95 fl (84-94) H 01/28/21 05:12 MCH 33 pg (28-32) H 01/28/21 05:12 MCHC 34 % (32-34) 01/28/21 05:12 RDW 14.1 % (13.2-15.2) 01/28/21 05:12 Plt Count 154 K/mm3 (140-440) 01/28/21 05:12 Lymph % (Auto) 30.7 % (13.4-35.0) 01/28/21 05:12 [place] % (Auto) 12.5 % (0.0-7.3) H 01/28/21 05:12 Eos % (Auto) 2.9 % (0.0-4.3) 01/28/21 05:12 Baso % (Auto) 1.0 % (0.0-1.8) 01/28/21 05:12 Lymph # (Auto) 1.2 K/mm3 (1.2-5.4) 01/28/21 05:12 [place] # (Auto) 0.5 K/mm3 (0.0-0.8) 01/28/21 05:12 Eos # (Auto) 0.1 K/mm3 (0.0-0.4) 01/28/21 05:12 Baso # (Auto) 0.0 K/mm3 (0.0-0.1) 01/28/21 05:12 Seg Neutrophils % 52.9 % (40.0-70.0) 01/28/21 05:12 Seg Neutrophils # 2.1 K/mm3 (1.8-7.7) 01/28/21 05:12 Sodium 140 mmol/L (137-145) 01/28/21 05:12 Potassium 3.8 mmol/L (3.6-5.0) 01/28/21 05:12 Chloride 106.9 mmol/L (98-107) 01/28/21 05:12 Carbon Dioxide 21 mmol/L (22-30) L 01/28/21 05:12 Anion Gap 16 mmol/L 01/28/21 05:12 BUN 23 mg/dL (9-20) H 01/28/21 05:12 Creatinine 0.7 mg/dL (0.8-1.3) L 01/28/21 05:12 Estimated GFR > 60 ml/min 01/28/21 05:12 BUN/Creatinine Ratio 33 % 01/28/21 05:12 Glucose 82 mg/dL (75-100) 01/28/21 05:12 POC Glucose 130 mg/dL (70-105) H 01/28/21 03:51 Calcium 9.1 mg/dL (8.4-10.2) 01/28/21 05:12 Total Bilirubin 0.70 mg/dL (0.1-1.2) 01/28/21 05:12 AST 16 units/L (5-40) 01/28/21 05:12 ALT 13 units/L (7-56) 01/28/21 05:12 Alkaline Phosphatase 102 units/L (35-129) 01/28/21 05:12 Total Protein 7.1 g/dL (6.3-8.2) 01/28/21 05:12 Albumin 4.1 g/dL (3.9-5) 01/28/21 05:12 Albumin/Globulin Ratio 1.4 % 01/28/21 05:12 Triglycerides 131 mg/dL (2-149) 01/28/21 05:12 Cholesterol 182 mg/dL (50-199) 01/28/21 05:12 LDL Cholesterol Direct 117 mg/dL (50-130) 01/28/21 05:12 HDL Cholesterol 49 mg/dL (40-59) 01/28/21 05:12 Cholesterol/HDL Ratio 3.71 % 01/28/21 05:12 TSH 1.960 mlU/mL (0.270-4.200) 01/28/21 05:12 Hepatitis A IgM Ab Non-reactive (NonReactive) 01/28/21 05:12 Hep Bs Antigen Nonreactive (Negative) 01/28/21 05:12 Hep B Core IgM Ab Non-reactive (NonReactive) 01/28/21 05:12 Hepatitis C Antibody Non-reactive (NonReactive) 01/28/21 05:12 Reyes/IV: Voiding Method Toilet Active Medications - Current Medications Current Medications: Generic Name Dose Route Start Last Admin Trade Name Freq PRN Reason Stop Dose Admin Acetaminophen 650 mg 01/28/21 22:06 Acetaminophen 325 Mg Tab PO Q6H PRN Pain, Mild (1-3) Apixaban 5 mg 01/28/21 10:00 02/05/21 11:02 Apixaban 5 Mg Tab PO 5 mg BID [facility] Administration Aspirin 81 mg 10/06/21 10:00 02/05/21 11:02 Aspirin Ec 81 Mg Tab PO 81 mg QDAY [facility] Administration Buspirone HCl 10 mg 02/01/21 14:00 02/05/21 15:21 Buspirone 10 Mg Tab PO 10 mg TID [facility] Administration Hydroxyzine Pamoate 25 mg 02/01/21 22:00 02/05/21 11:02 Hydroxyzine Pamoate 25 Mg Cap PO 25 mg BID [facility] Administration Lorazepam 2 mg 01/29/21 09:00 Lorazepam 2 Mg/Ml Vial IV Q4H PRN Agitation Mirtazapine 15 mg 01/27/21 22:00 02/04/21 21:51 Mirtazapine 15 Mg Tab PO 15 mg QHS [facility] Administration Olanzapine 15 mg 02/01/21 10:00 02/05/21 11:01 Olanzapine 7.5 Mg Tab PO 15 mg QDAY [facility] Administration Sertraline HCl 50 mg 02/02/21 10:00 02/05/21 11:01 Sertraline 50 Mg Tab PO 50 mg QDAY [facility] Administration Nutrition/Malnutrition Assess - Dietary Evaluation Nutrition/Malnutrition Findings: Nutrition Notes Start: 02/04/21 09:40 Freq: Status: Active Protocol: Document 02/04/21 09:40 GB (Rec: 02/04/21 09:53 GB [id number]) Nutrition Notes Need for Assessment generated from: LOS Initial or Follow up Assessment Current Diagnosis Hypertension Other Pertinent Diagnosis Bipolar disorder, Schizophrenia, Afib Current Diet Regular Labs/Tests 01/28: BUN 23, Creatinine 0.7 Pertinent Medications reviewed Height 6 ft Weight 111.13 kg [place] Body Weight (kg) 80.90 BMI 33.2 Intake Prior to Admission Good Weight change and time frame Admit weight only Weight Status Obese Subjective/Other Information Per chart: PO intake 75-100% meals, pt does refuse meals at times. Does eat at least one meal a day with intake 75% or greater. Supplements offered and consumed 50-100%. Last BM: 10/10 Percent of energy/protein needs met: PO intake of meals 75% or greater meets 75% or greater of minimal EEN. Burn Absent Trauma Absent GI Symptoms None Food Allergy No Skin Integrity/Comment no reported complications Current % PO Good (75-100%) Minimum of two criteria No #1 Nutrition Diagnosis No nutrition diagnosis at this time Comments: Good PO, no reported significant weight changes, weight in obese range of BMI, reported changes in musculoskeletal function Is patient on ventilator? No Is Patient Ambulatory and/or Out of Bed Yes [facility] [ 2534.090 [id number]] Kcal/Kg value to use for calculation 17 Approximate Energy Requirements Using 1889 kcal/Kg Calculation Used for Recommendations Kcal/kg Additional Notes Protein 0.8-1 g/kg @ 111k -111g Fluids: 1 ml/kcal or per MD Nutrition Intervention Change Diet Order: continue Nutrition Support: n/a Add Supplement/Snack (indicate name/kcal offer PRN /protein ) Goal #1 PO intake of meals to continue at 75% or greater daily during LOS Follow-Up By: 03/11/21 Revisit per MD consult or patient Sign Off request: Additional Comments consult for further nutrition intervention
[2021-02-05 20:21] VITALS: BP 113/89
[2021-02-05] MEDS: MIRTAZAPINE 15 MG TAB PO SCH (22:27)
--- NOTE | 2021-02-06 09:16 | Discharge Summary ---
Providers - Providers Date of Admission: 01/28/21 01:37 Date of discharge: 02/06/21 Attending physician: HUSSAIN ARCOS MD 01/27/21 16:18 Consult to Physician [CONS] Routine Comment: Consulting Provider: JUN HEDRICK Physician Instructions: Reason For Exam: manage existing medical conditions 01/28/21 07:55 Consult to Wound/ET Nurse [CONS] Routine Reason For Exam: wound eval to left lower leg. Primary care physician: [employer]OR Hospitalization Reason for admission: Depression, Suicidal ideation Admitting Diagnosis: F33.9 - MAJOR DEPRESSIVE DISORDER, RECURRENT, UNSPECIFIED Condition: Stable Hospital course: The patient was provided inpatient psychiatric treatment with safe and supportive environment, group/individual therapy, psychiatric medication, medication adjustment, adverse effect monitor, medical evaluation, medical treatment, social service assessment, social support meeting, placement assessment and psycho-education. The patients mood, cognition, behavior, motivation, compliance to treatment and appreciation on family/social support are improved and stabilized. At the time of discharge, the patient had no suicidal ideas, no homicidal ideas, no aggressive thoughts, no endangering behavior and no debilitating adverse effects. The patient agreed on the treatment plan, understood the risk, benefit, alternative treatment, potential consequence of no treatment, and gave informed consent. Progress note: 01/29/2021: The patient was seen pacing he reports being depressed and anxious. The patient was asked why he was laying on the floor, he states " I was stressed out." He denies any current suicidal /homicidal ideation and denies hallucinations. Start- Vistaril 25mg po every 6 hours, Buspar 10mg po BID and Ativan 2mg IM every 4 hours for agitation. 01/30/2021:The patient was seen today. He is sitting in the greber by himself away from people. He says he came in for suicidal thoughts and depression. He says "I want to sign myself out. I'm no longer suicidal." The patient does verbalize severe depression. When asking him what changed to make him no longer suicidal, he replies "I thought about it." 01/31/2021:Pt observed overnight to continue to act bizarre and weird sleeping on the floor with his body against the door. Encouraged to sleep on the bed. He paranoid and suspicious. "I'm afraid for my safety," he verbalized. Pt have no insight to situation. Withdrawn to self and interacting with peers or staff. However, pt compliant with medications and no acute distress observed and none reported. Will continue to monitor. 02/01/2021: The patient was seen today. He is walking in the gerber. He tells me he feels weird. He says "I feel like people are after me." He also says he feels very anxious. He denies SI/HI or hallucianations of any kind. 02/02/2021:The patient was seen today. He appears much calm today than yesterday. He is reading his Bible. He says "I prayer is helping a lot and I think the meds too." He denies SI/HI or hallucinations of any kind. 02/03/2021:TThe patient appears to be improving, but he has episodes of paranoia and high anxiety 02/04/2021:The patient was seen today. He is a little anxious, but states he's feeling better than before. He denies SI/HI or hallucinations of any kind. The staff states he has been withdrawn and in his room a lot. 02/05/2021: The patient was seen today. He is calm and cooperative. He denies SI/HI or hallucinations of any kind. He says being here is bad for him. The patient can be discharged as soon as the SW does her end of his outpatient set- up to ensue the patient's safety upon discharge. Disposition: 01 HOME / SELF CARE / HOMELESS Allergies/Adverse Reactions: Allergies Hornets Allergy (Uncoded 01/26/21 19:42) Hives Vital Signs: Last Vital Signs Temp 98.7 F 02/05/21 10:38 Pulse 103 H 02/05/21 19:47 Resp 18 02/05/21 10:38 BP 113/89 02/05/21 10:38 Pulse Ox 96 02/05/21 19:47 Last Lab: Laboratory Last Values WBC 3.9 K/mm3 (4.5-11.0) L 01/28/21 05:12 RBC 4.40 M/mm3 (3.65-5.03) 01/28/21 05:12 Hgb 14.4 gm/dl (11.8-15.2) 01/28/21 05:12 Hct 41.8 % (35.5-45.6) 01/28/21 05:12 MCV 95 fl (84-94) H 01/28/21 05:12 MCH 33 pg (28-32) H 01/28/21 05:12 MCHC 34 % (32-34) 01/28/21 05:12 RDW 14.1 % (13.2-15.2) 01/28/21 05:12 Plt Count 154 K/mm3 (140-440) 01/28/21 05:12 Lymph % (Auto) 30.7 % (13.4-35.0) 01/28/21 05:12 Bucks % (Auto) 12.5 % (0.0-7.3) H 01/28/21 05:12 Eos % (Auto) 2.9 % (0.0-4.3) 01/28/21 05:12 Baso % (Auto) 1.0 % (0.0-1.8) 01/28/21 05:12 Lymph # (Auto) 1.2 K/mm3 (1.2-5.4) 01/28/21 05:12 Bucks # (Auto) 0.5 K/mm3 (0.0-0.8) 01/28/21 05:12 Eos # (Auto) 0.1 K/mm3 (0.0-0.4) 01/28/21 05:12 Baso # (Auto) 0.0 K/mm3 (0.0-0.1) 01/28/21 05:12 Seg Neutrophils % 52.9 % (40.0-70.0) 01/28/21 05:12 Seg Neutrophils # 2.1 K/mm3 (1.8-7.7) 01/28/21 05:12 Sodium 140 mmol/L (137-145) 01/28/21 05:12 Potassium 3.8 mmol/L (3.6-5.0) 01/28/21 05:12 Chloride 106.9 mmol/L (98-107) 01/28/21 05:12 Carbon Dioxide 21 mmol/L (22-30) L 01/28/21 05:12 Anion Gap 16 mmol/L 01/28/21 05:12 BUN 23 mg/dL (9-20) H 01/28/21 05:12 Creatinine 0.7 mg/dL (0.8-1.3) L 01/28/21 05:12 Estimated GFR > 60 ml/min 01/28/21 05:12 BUN/Creatinine Ratio 33 % 01/28/21 05:12 Glucose 82 mg/dL (75-100) 01/28/21 05:12 POC Glucose 130 mg/dL (70-105) H 01/28/21 03:51 Calcium 9.1 mg/dL (8.4-10.2) 01/28/21 05:12 Total Bilirubin 0.70 mg/dL (0.1-1.2) 01/28/21 05:12 AST 16 units/L (5-40) 01/28/21 05:12 ALT 13 units/L (7-56) 01/28/21 05:12 Alkaline Phosphatase 102 units/L (35-129) 01/28/21 05:12 Total Protein 7.1 g/dL (6.3-8.2) 01/28/21 05:12 Albumin 4.1 g/dL (3.9-5) 01/28/21 05:12 Albumin/Globulin Ratio 1.4 % 01/28/21 05:12 Triglycerides 131 mg/dL (2-149) 01/28/21 05:12 Cholesterol 182 mg/dL (50-199) 01/28/21 05:12 LDL Cholesterol Direct 117 mg/dL (50-130) 01/28/21 05:12 HDL Cholesterol 49 mg/dL (40-59) 01/28/21 05:12 Cholesterol/HDL Ratio 3.71 % 01/28/21 05:12 TSH 1.960 mlU/mL (0.270-4.200) 01/28/21 05:12 Hepatitis A IgM Ab Non-reactive (NonReactive) 01/28/21 05:12 Hep Bs Antigen Nonreactive (Negative) 01/28/21 05:12 Hep B Core IgM Ab Non-reactive (NonReactive) 01/28/21 05:12 Hepatitis C Antibody Non-reactive (NonReactive) 01/28/21 05:12 Core Measure Documentation - Palliative Care Palliative Care/ Comfort Measures: Not Applicable - Core Measures Any of the following diagnoses?: none - VTE Discharge Requirements Deep Vein Thrombosis/Pulmonary Embolism Present on Admission: No Exam - Constitutional Vitals: Temp Pulse Resp BP Pulse Ox 98.7 F 103 H 18 113/89 96 02/05/21 10:38 02/05/21 19:47 02/05/21 10:38 02/05/21 10:38 02/05/21 19:47 Plan Activity: advance as tolerated Weight Bearing Status: Weight Bear as Tolerated Diet: regular Care Plan Goals: Maintain good and stable mental health. Plan of Treatment: The patient should be compliant with medications, not to use drugs and not to drink alcohol. The [facility] understands that if suicidal ideas, homicidal ideas, or any endangering thoughts/behavior arise, they should immediately seek for emergent assistance including but not limited to crisis hot line and emergency room. Follow up with outpatient Psychiatrist and PCP within 7 - 14 days of discharge. Follow up with: PRIMARY CARE,MD [Primary Care Provider] - 7 Days Prescriptions: Mirtazapine [Remeron 15mg TAB] 15 mg PO QHS 30 Days #30 tablet busPIRone [Buspar] 10 mg PO TID 30 Days #90 tablet hydrOXYzine PAMOATE [Vistaril] 25 mg PO BID 30 Days #60 capsule Sertraline [Zoloft] 50 mg PO QDAY 30 Days #30 tablet OLANzapine [ZyPREXA] 15 mg PO QDAY 30 Days #30 tablet
[2021-02-06] MEDS: APIXABAN 5 MG TAB PO SCH (10:24)
[2021-02-06] MEDS: busPIRone 10 MG TAB PO SCH (10:24)
[2021-02-06] MEDS: SERTRALINE 50 MG TAB PO SCH (10:25)
[2021-02-06] MEDS: hydrOXYzine PAMOATE 25 MG CAP PO SCH (10:25)
[2021-02-06] MEDS: ASPIRIN EC 81 MG TAB PO SCH (10:25)
== END 2021-02-06 13:25 | disposition home or self-care (01) | DRG 885 ==
LOC: 5A 01:37 → UNDOADMIN 15:38 → 3A 15:38 → 5A 01-28 01:37 → UNDOADMIN 01-28 01:37 → UNDODISIN 02-06 13:25
PROVIDERS: ADMIT Psychiatry & Neurology Psychiatry; ATTEND Psychiatry & Neurology Psychiatry
DX: F33.2 Major depressive disorder, recurrent severe without psychotic features (principal); F41.1 Generalized anxiety disorder; I48.0 Paroxysmal atrial fibrillation; Z20.822 Contact with and (suspected) exposure to COVID-19
CPT/HCPCS: 36415; 71045; 80048; 80053; 80061; 80074; 80307; 80320; 81001; 82962; 84443; 85025; 93005; 99284; G0378; G0480; Q0177; U0003